=== PATIENT | female | born 1965 | race Caucasian/White ===

== ENCOUNTER 2016-08-11 13:24 | Emergency (ER) | payer OTHER ==
[~2016-08-11] VITALS: Ht 165.1 cm; Wt 120.2 kg
[2016-08-11 14:44] LABS: BASO % 1 % (0-3); EOS % 1 % (0-3); HEMATOCRIT 39.2 % (36.0-47.0); HEMOGLOBIN 13.8 g/dL (12.0-15.5); LYMPH # 2.5 x10^3/uL (1.0-4.8); LYMPH % 33 % (24-48); MEAN CORPUSCULAR HEMOGLOBIN 31 pg (25-35); MEAN CORPUSCULAR HGB CONC 35 g/dL (31-37); MEAN CORPUSCULAR VOLUME 89 fL (79-100); MONO % 7 % (0-9); NEUT % 58 % (31-73); PLATELET COUNT 256 x10^3/uL (140-400); RED CELL DISTRIBUTION WIDTH 13.1 % (11.5-14.5); WHITE BLOOD COUNT 7.5 x10^3/uL (4.0-11.0)
[2016-08-11 14:46] LABS: BILIRUBIN,URINE NEGATIVE (NEG); GLUCOSE,URINE NEGATIVE (NEG); NITRITE,URINE NEGATIVE (NEG); PROTEIN,URINE NEGATIVE (NEG-TRACE); UROBILINOGEN,URINE 0.2 mg/dL (0.2 mg/dL)
[2016-08-11 14:50] LABS: BACTERIA,URINE FEW /HPF (0-FEW); RBC,URINE 0 /HPF (0-2); SQUAMOUS EPITHELIAL CELL,UR FEW /LPF; WBC,URINE 0 /HPF (0-4)
[2016-08-11 14:55] LABS: CREATININE 0.7 mg/dL (0.6-1.0); GFR 88.2; POTASSIUM 3.9 mmol/L (3.5-5.1)
[2016-08-11 15:01] LABS: ALBUMIN 3.7 g/dL (3.4-5.0); CALCIUM 9.2 mg/dL (8.5-10.1); TOTAL BILIRUBIN 0.5 mg/dL (0.2-1.0); TOTAL PROTEIN 7.5 g/dL (6.4-8.2)
--- NOTE | 2016-08-11 16:33 | RAD ---
PROCEDURE Limited abdomen ultrasound study of the right upper quadrant HISTORY Right upper quadrant pain. FINDINGS The study is technically difficult due to large body habitus and overlying bowel gas. The midline structures including the pancreas and abdominal aorta are obscured by overlying bowel gas. The gallbladder is small in size. The patient ate 2.5 hours ago. No obvious gallstone or gallbladder wall thickening is seen otherwise. No pericholecystic free fluid is evident. The extrahepatic bile duct measures 3.4 millimeters in caliber which is normal. There is diffuse attenuation of sound throughout the liver consistent with fatty infiltration of the liver. This decreases the sensitivity of sonography to detect focal hepatic lesions. No focal hepatic mass is seen. The liver measures 15.4 centimeters in length which is normal. The length of the right kidney is 12.4 centimeters. No hydronephrosis or renal mass or perinephric fluid collection is seen on the right side. IMPRESSION Limited study. Fatty infiltration of the liver. Normal sonographic evaluation of the gallbladder. Electronically signed by: Hector Robledo MD (August 11, 2016 16:32:02)
--- NOTE | 2016-08-11 16:47 | PHYS DOC ---
Past Medical History Past Medical History: No Pertinent History Past Surgical History: , Tonsillectomy Alcohol Use: None Drug Use: None Adult General Chief Complaint Chief Complaint: FLANK PAIN HPI HPI Patient is a 50 year old female who presents with abdominal pain & flank pain. Patient reports 3 day history of RUQ & right flank pain which is sharp, worse at night, worsens with eating any food. She denies fevers/chills, nausea, vomiting, diarrhea, constipation, dysuria/hematuria. Previous symptoms several years ago, had gallbladder workup but no significant cause identified at that time. She denies significant PMHx, history of . Review of Systems Review of Systems Constitutional: Denies fever or chills Eyes: Denies change in visual acuity HENT: Denies nasal congestion or sore throat Respiratory: Denies cough or shortness of breath Cardiovascular: Denies chest pain or edema GI: Reports abdominal pain, denies nausea, vomiting, bloody stools or diarrhea : Denies dysuria or hematuria Musculoskeletal: Reports flank pain Integument: Denies rash or skin lesions Neurologic: Denies headache, focal weakness or sensory changes Current Medications Current Medications Current Medications Medications (Trade) Dose Ordered Sig/Lynn Start Time Stop Time Status Last Admin Dose Admin Info (Do NOT chart on this entry -- for MONITORING) 1 each PRN DAILY PRN 08/11/16 17:15 08/11/16 18:53 DC Iohexol (Omnipaque 300 Mg/ml) 75 ml 1X ONCE 08/11/16 17:00 08/11/16 17:05 DC Allergies Allergies Allergies Coded Allergies Type Severity Reaction Last Updated Verified No Known Drug Allergies 08/11/16 No Physical Exam Physical Exam Constitutional: obese, no acute distress, non-toxic appearance. HENT: Normocephalic, atraumatic, bilateral external ears normal, oropharynx moist, nose normal. Eyes: conjunctiva normal, no discharge. Neck: supple, no stridor. Cardiovascular: RRR, no murmurs, no edema. Lungs & Thorax: LCTAB, no wheezing, no respiratory distress. Abdomen: normal bowel sounds, soft, RUQ tenderness, otherwise nontender, no rebound/guarding, no masses or pulsatile masses, nondistended. Skin: Warm, dry, no erythema, no rash. Back: right CVA tenderness is present. Extremities: No tenderness, no edema. Neurologic: Alert and oriented X 3, no focal deficits noted. Psychologic: Affect normal, judgement normal, mood normal. Current Patient Data Vital Signs Vital Signs Date Time Temp Pulse Resp B/P (MAP) Pulse Ox O2 Delivery O2 Flow Rate FiO2 08/11/16 17:00 74 16 148/64 (92) 98 Room Air 08/11/16 13:34 97.8 97.8 Lab Values Laboratory Tests Test 08/11/16 14:30 08/11/16 14:35 Urine Collection Type Unknown Urine Color Yellow Urine Clarity Clear Urine pH 7.0 Urine Specific [place] 1.015 Urine Protein Negative mg/dL (NEG-TRACE) Urine Glucose (UA) Negative mg/dL (NEG) Urine Ketones (Stick) Negative mg/dL (NEG) Urine Blood Negative (NEG) Urine Nitrite Negative (NEG) Urine Bilirubin Negative (NEG) Urine Urobilinogen Dipstick 0.2 mg/dL (0.2 mg/dL) Urine Leukocyte Esterase Negative (NEG) Urine RBC 0 /HPF (0-2) Urine WBC 0 /HPF (0-4) Urine Squamous Epithelial Cells Few /LPF Urine Bacteria Few /HPF (0-FEW) Urine Mucus Mod /LPF White Blood Count 7.5 x10^3/uL (4.0-11.0) Red Blood Count 4.40 x10^6/uL (3.50-5.40) Hemoglobin 13.8 g/dL (12.0-15.5) Hematocrit 39.2 % (36.0-47.0) Mean Corpuscular Volume 89 fL (79-100) Mean Corpuscular Hemoglobin 31 pg (25-35) Mean Corpuscular Hemoglobin Concent 35 g/dL (31-37) Red Cell Distribution Width 13.1 % (11.5-14.5) Platelet Count 256 x10^3/uL (140-400) Neutrophils (%) (Auto) 58 % (31-73) Lymphocytes (%) (Auto) 33 % (24-48) Monocytes (%) (Auto) 7 % (0-9) Eosinophils (%) (Auto) 1 % (0-3) Basophils (%) (Auto) 1 % (0-3) Neutrophils # (Auto) 4.4 x10^3uL (1.8-7.7) Lymphocytes # (Auto) 2.5 x10^3/uL (1.0-4.8) Monocytes # (Auto) 0.5 x10^3/uL (0.0-1.1) Eosinophils # (Auto) 0.1 x10^3/uL (0.0-0.7) Basophils # (Auto) 0.0 x10^3/uL (0.0-0.2) Sodium Level 141 mmol/L (136-145) Potassium Level 3.9 mmol/L (3.5-5.1) Chloride Level 103 mmol/L (98-107) Carbon Dioxide Level 29 mmol/L (21-32) Anion Gap 9 (6-14) Blood Urea Nitrogen 17 mg/dL (7-20) Creatinine 0.7 mg/dL (0.6-1.0) Estimated GFR (Cockcroft-Gault) 88.2 BUN/Creatinine Ratio 24 (6-20) H Glucose Level 116 mg/dL (70-99) H Calcium Level 9.2 mg/dL (8.5-10.1) Total Bilirubin 0.5 mg/dL (0.2-1.0) Aspartate Amino Transferase (AST) 21 U/L (15-37) Alanine Aminotransferase (ALT) 25 U/L (14-59) Alkaline Phosphatase 67 U/L (46-116) Total Protein 7.5 g/dL (6.4-8.2) Albumin 3.7 g/dL (3.4-5.0) Albumin/Globulin Ratio 1.0 (1.0-1.7) Lipase 102 U/L (73-393) Laboratory Tests 08/11/16 14:35 Laboratory Tests 08/11/16 14:35 EKG EKG [] Radiology/Procedures Radiology/Procedures PROCEDURE: ABDOMEN LTD PROCEDURE Limited abdomen ultrasound study of the right upper quadrant HISTORY Right upper quadrant pain. FINDINGS The study is technically difficult due to large body habitus and overlying bowel gas. The midline structures including the pancreas and abdominal aorta are obscured by overlying bowel gas. The gallbladder is small in size. The patient ate 2.5 hours ago. No obvious gallstone or gallbladder wall thickening is seen otherwise. No pericholecystic free fluid is evident. The extrahepatic bile duct measures 3.4 millimeters in caliber which is normal. There is diffuse attenuation of sound throughout the liver consistent with fatty infiltration of the liver. This decreases the sensitivity of sonography to detect focal hepatic lesions. No focal hepatic mass is seen. The liver measures 15.4 centimeters in length which is normal. The length of the right kidney is 12.4 centimeters. No hydronephrosis or renal mass or perinephric fluid collection is seen on the right side. IMPRESSION Limited study. Fatty infiltration of the liver. Normal sonographic evaluation of the gallbladder. Electronically signed by: Amy Robledo MD (August 11, 2016 16:32:02) DICTATED and SIGNED BY: AMY ROBLEDO MD DATE: 08/11/16 1632 PROCEDURE: CT ABD PELV W/ IV CONTRST ONLY Examination: CT of the abdomen pelvis with IV contrast. HISTORY History of right upper quadrant pain for 3 days. COMPARISON None available. TECHNIQUE Axial CT images of the abdomen and pelvis were performed with IV contrast. Coronal and sagittal reformats were performed. Exposure: One or more of the following dose reduction technique were utilized for this examination: 1. Automated exposure control. 2.Adjustment of MA and /or KV according to patient size. 3. Use of iterative reconstruction technique. Findings: The visualized bibasilar lungs grossly appears unremarkable. No evidence of free air identified in the abdomen. There is mild decrease attenuation noted throughout the liver likely hepatic steatosis. The gallbladder is mildly distended. The visualized spleen, right adrenal grossly appears unremarkable. In the left adrenal gland, there is a 4.0 x 3.5 centimeter hypodense lesion identified measuring 13 Hounsfield units likely a lipid rich adrenal adenoma. The bilateral kidneys enhance symmetrically. Mild prominent appearing bilateral extrarenal pelvis. The visualized pancreas grossly appears unremarkable. The stomach is mildly distended. The small bowel is nondilated. The appendix is normal. Feces and gas noted in the colon. The urinary bladder is mildly distended. No evidence of lytic bony destructive lesion. Mild degenerative changes identified in the visualized thoracolumbar spine. Impression: 1. No acute intra-abdominal findings. 2. Hepatic steatosis. 3. 4 centimeter left adrenal lesion likely lipid rich adrenal adenoma followup nonemergent adrenal CT protocol can be considered. Electronically signed by: Jose Norris (August 11, 2016 18:37:29) DICTATED and SIGNED BY: JOSE NORRIS MD DATE: 08/11/16 4947 [] Course & Med Decision Making Course & Med Decision Making Pertinent Labs and Imaging studies reviewed. (See chart for details) The patient presents with abdominal pain. UA unremarkable, labs within normal limits. Obtained ultrasound which is negative for any gallbladder pathology. She had ongoing pain although continued to declined need for any pain medication here. Obtained CT of the abdomen and pelvis. There were no acute abnormalities identified. I did advise the patient of abnormal adrenal finding and need for follow-up. She was controlled with plan for discharge home. I encouraged her to follow up with her primary care physician in 2-3 days if symptoms not improving. Given prescription for [place] for severe pain. No drinking alcohol or driving while taking [place]. Return to the emergency department for high fever, severe pain, uncontrolled vomiting, any otherwise worsening condition. Discharged home in stable condition. [] Dragon Disclaimer Dragon Disclaimer This electronic medical record was generated, in whole or in part, using a voice recognition dictation system. Departure Departure Impression: Primary Impression: Abdominal pain Disposition: HOME, SELF-CARE Condition: STABLE Referrals: RODRIGUEZ GONZALEZ MD (PCP) Patient Instructions: Abdominal Pain, [id number] Additional Instructions: You were seen in the emergency department today for abdominal pain. We did not find a significant cause of the pain your experiencing. You can take [place] as needed for severe pain. No drinking alcohol or driving while taking this medication. Drink fluids to stay hydrated. There was a abnormal spot on your adrenal gland. Follow up with Dr. Gonzalez & there may be additional tests recommended. Follow up in the clinic if pain not improving in 2-3 days. Come back for high fever, severe pain, uncontrolled vomiting, any otherwise worsening condition. Scripts Hydrocodone/Apap 5-325 (NORCO 5-325 TABLET) 1 Each Tablet 1 TAB PO PRN Q6HRS Y for PAIN, #10 TAB 0 Refills Prov: PETAR CARLSON MD 08/11/16 PETAR CARLSON MD August 11, 2016 16:47
[2016-08-11 17:00] VITALS: BP 148/64
[2016-08-11] MEDS ORDERED: IOHEXOL 300 MG/ML 75 ML VIAL IV ONE (17:00)
[2016-08-11] MEDS ORDERED: CONTRAST GIVEN MC PRN (17:15)
--- NOTE | 2016-08-11 18:38 | RAD ---
Examination: CT of the abdomen pelvis with IV contrast. HISTORY History of right upper quadrant pain for 3 days. COMPARISON None available. TECHNIQUE Axial CT images of the abdomen and pelvis were performed with IV contrast. Coronal and sagittal reformats were performed. Exposure: One or more of the following dose reduction technique were utilized for this examination: 1. Automated exposure control. 2.Adjustment of MA and /or KV according to patient size. 3. Use of iterative reconstruction technique. Findings: The visualized bibasilar lungs grossly appears unremarkable. No evidence of free air identified in the abdomen. There is mild decrease attenuation noted throughout the liver likely hepatic steatosis. The gallbladder is mildly distended. The visualized spleen, right adrenal grossly appears unremarkable. In the left adrenal gland, there is a 4.0 x 3.5 centimeter hypodense lesion identified measuring 13 Hounsfield units likely a lipid rich adrenal adenoma. The bilateral kidneys enhance symmetrically. Mild prominent appearing bilateral extrarenal pelvis. The visualized pancreas grossly appears unremarkable. The stomach is mildly distended. The small bowel is nondilated. The appendix is normal. Feces and gas noted in the colon. The urinary bladder is mildly distended. No evidence of lytic bony destructive lesion. Mild degenerative changes identified in the visualized thoracolumbar spine. Impression: 1. No acute intra-abdominal findings. 2. Hepatic steatosis. 3. 4 centimeter left adrenal lesion likely lipid rich adrenal adenoma followup nonemergent adrenal CT protocol can be considered. Electronically signed by: Jose Norris (August 11, 2016 18:37:29)
[2016-08-11] MEDS ORDERED: HYDR-971 PO (18:44)
== END 2016-08-11 18:47 | disposition home or self-care (01) ==
LOC: ER 14:25
DX: R10.11 Right upper quadrant pain (principal); K76.0 Fatty (change of) liver, not elsewhere classified; Z98.890 Other specified postprocedural states
CPT/HCPCS: 36415; 74177; 76705; 80053; 81001; 83690; 85027; 99285-25

== ENCOUNTER 2019-01-31 18:09 | Emergency (ER) | payer OTHER ==
[~2019-01-31] VITALS: Ht 165.1 cm; Wt 120.2 kg
[~2019-01-31 18:09] MED LIST: HYDR-3164 PO
[2019-01-31 18:15] VITALS: BP 158/95
[2019-01-31] MEDS ORDERED: NAPROXEN 500 MG TABLET PO STA (18:40)
[2019-01-31] MEDS ORDERED: diazePAM 5 MG TABLET PO ONE (18:45)
[2019-01-31] MEDS ORDERED: HYDROcodone/APAP 5/325MG 1 TAB TABLET PO ONE (18:45)
[2019-01-31] MEDS ORDERED: predniSONE 10 MG TABLET PO ONE (18:45)
[2019-01-31] MEDS ORDERED: ONDANSETRON ODT 4 MG TAB.RAPDIS. ONE (19:25)
[2019-01-31] MEDS ORDERED: HYDR-3164 PO (19:39)
[2019-01-31] MEDS ORDERED: GABA600T7 PO (19:39)
[2019-01-31] MEDS ORDERED: METH4TAB2 PO (19:39)
[2019-01-31] MEDS ORDERED: ONDA4TAB12 PO (19:40)
--- NOTE | 2019-01-31 19:40 | PHYS DOC ---
Past Medical History Past Medical History: No Pertinent History (PREETI JACOB APRN) Past Surgical History: , Tonsillectomy (PREETI JACOB APRN) Alcohol Use: None Drug Use: None (PREETI JACOB APRN) Attending Signature I have participated in the care of this patient and I have reviewed and agree with all pertinent clinical information above including history, exam, and recommendations. (ROBBI NICHOLAS MD) Adult General Chief Complaint Chief Complaint: UPPER EXTREMITY PAIN HPI HPI Patient is a 53 year old female with no significant medical history who presents to the ED today complaining over 9 out of 10 sharp intermittent left upper extremity pain that has been going on for 4 weeks. Patient denies any known injury. She states the pain is worse on range of motion especially on the elbow. She states she intermittently feels the pain in her fingers, she states she was seen by the PCP for this pain and was told she has a pinched nerve and was put on Flexeril. Instructed to take ibuprofen, patient states symptoms have not improved. (PREETI JACOB APRN) Review of Systems Review of Systems Constitutional: Denies fever or chills [] Eyes: Denies change in visual acuity, redness, or eye pain [] HENT: Denies nasal congestion or sore throat [] Respiratory: Denies cough or shortness of breath [] Cardiovascular: No additional information not addressed in HPI [] GI: Denies abdominal pain, nausea, vomiting, bloody stools or diarrhea [] : Denies dysuria or hematuria [] Musculoskeletal: Reports left upper extremity pain Integument: Denies rash or skin lesions [] Neurologic: Denies headache, focal weakness or sensory changes [] All other systems were reviewed and found to be within normal limits, except as documented in this note. (PREETI JACOB APRN) Current Medications Current Medications Current Medications Medications (Trade) Dose Ordered Sig/Lynn Start Time Stop Time Status Last Admin Dose Admin Acetaminophen/ Hydrocodone Bitart (Lortab 5/325) 2 tab 1X ONCE 01/31/19 18:45 01/31/19 18:52 DC 01/31/19 18:57 2 TAB Diazepam (Valium) 5 mg 1X ONCE 01/31/19 18:45 01/31/19 18:52 DC 01/31/19 18:57 5 MG Naproxen (Naprosyn) 500 mg 1X STAT 01/31/19 18:40 01/31/19 18:52 DC 01/31/19 18:57 500 MG Ondansetron HCl (Zofran Odt) 4 mg 1X ONCE 01/31/19 19:45 01/31/19 19:46 DC Prednisone (Prednisone) 50 mg 1X ONCE 01/31/19 18:45 01/31/19 18:52 DC 01/31/19 18:57 50 MG (ROBBI NICHOLAS MD) Allergies Allergies Allergies Coded Allergies Type Severity Reaction Last Updated Verified No Known Drug Allergies 08/11/16 No (ROBBI NICHOLAS MD) Physical Exam Physical Exam Constitutional: Well developed, well nourished, no acute distress, non-toxic appearance. [] HENT: Normocephalic, atraumatic, bilateral external ears normal, oropharynx moist, no oral exudates, nose normal. [] Eyes: PERRLA, EOMI, conjunctiva normal, no discharge. [] Neck: Normal range of motion, no tenderness, supple, no stridor. [] Cardiovascular:Heart rate regular rhythm, no murmur [] Lungs & Thorax: Bilateral breath sounds clear to auscultation [] Abdomen: Bowel sounds normal, soft, no tenderness, no masses, no pulsatile masses. [] Skin: Warm, dry, no erythema, no rash. [] Back: No tenderness, no CVA tenderness. [] Extremities: No tenderness, no cyanosis, no clubbing, ROM intact, no edema. [] Neurologic: Alert and oriented X 3, normal motor function, normal sensory function, no focal deficits noted. [] Psychologic: Affect normal, judgement normal, mood normal. [] (PREETI JACOB APRN) Current Patient Data Vital Signs Vital Signs Date Time Temp Pulse Resp B/P (MAP) Pulse Ox O2 Delivery O2 Flow Rate FiO2 01/31/19 18:57 16 99 Room Air 01/31/19 18:15 98.6 80 158/95 (116) 98.6 (ROBBI NICHOLAS MD) EKG EKG [address] Nicholas sinus rhythm HR 84 no STEMI[] (PREETI JACOB APRN) Radiology/Procedures Radiology/Procedures [] (PREETI JACOB APRN) Course & Med Decision Making Course & Med Decision Making Pertinent Labs and Imaging studies reviewed. (See chart for details) This is a 53-year-old female patient presented to the ED today with left upper extremity pain for 4 weeks. Has been seen by the PCP and was diagnosed with a pinched nerve. She is currently on Flexeril and ibuprofen with no relief. EKG is negative. Patient was given prescription for gabapentin, hydrocodone and Medrol Dosepak, encouraged to continue doing ibuprofen and Flexeril. Provided pain clinic for follow-up as well as encouraged to see the PCP. (PREETI JACOB APRN) Dragon Disclaimer Dragon Disclaimer This electronic medical record was generated, in whole or in part, using a voice recognition dictation system. (PREETI JACOB APRN) Departure Departure Impression: Primary Impression: Radicular pain in left arm Disposition: 01 HOME, SELF-CARE Condition: STABLE Referrals: MARISABEL WILLIAMSON MD (PCP) follow up next week FATOU MEDEROS MD follow up next week Patient Instructions: Radicular Pain Additional Instructions: You have elevated in the emergency room for left upper extremity pain, we put you on medications, take them as prescribed. Try to follow-up with your primary care doctor next week, we also provided you with a pain clinic doctor, consider following up with them, they might be able to do some joint injections to help alleviate the pain. Scripts Ondansetron (ONDANSETRON ODT) 4 Mg Tab.rapdis 1 TAB PO PRN Q6-8HRS, #16 TAB Prov: PREETI JACOB APRN 01/31/19 Methylprednisolone (MEDROL) 4 Mg Tab.ds.pk 1 PKG PO UD, #1 PKG Prov: PREETI JACOB APRN 01/31/19 Gabapentin (GABAPENTIN) 600 Mg Tablet 600 MG PO TID for NEUROGENIC PAIN, #30 TAB Prov: PREETI JACOB APRN 01/31/19 Hydrocodone/Apap 5-325 (NORCO 5-325 TABLET) 1 Each Tablet 1 TAB PO Q6HRS, #20 TAB Prov: PREETI JACOB APRN 01/31/19 PREETI JACOB APRN Jan 31, 2019 19:40 ROBBI NICHOLAS MD Jan 31, 2019 23:18
[2019-01-31] MEDS ORDERED: ONDANSETRON ODT 4 MG TAB.RAPDIS. PO ONE (19:45)
--- NOTE | 2019-02-02 07:43 | EKG ---
[facility] [address] [place] [address] Test Date: 2019-01-31 Test Time: 18:55:52 Pat Name: MICHAEL ROSS Department: Room: Gender: F [employer]: : [id number] Requested By: PREETI JACOB Order Number: [id number] Reading MD: Measurements Intervals [place] Rate: 84 P: 35 VT: 162 QRS: 9 QRSD: 88 T: 49 QT: 360 QTc: 429 Interpretive Statements SINUS RHYTHM QRS(T) CONTOUR ABNORMALITY CONSIDER ANTEROSEPTAL MYOCARDIAL DAMAGE CONSIDER INFERIOR INFARCT POSSIBLY ABNORMAL ECG RI6.01 No previous ECG available for comparison
== END 2019-01-31 19:50 | disposition home or self-care (01) ==
LOC: ER 18:09
DX: M79.602 Pain in left arm (principal); M54.10 Radiculopathy, site unspecified
CPT/HCPCS: 93005; 99284; J7512

== ENCOUNTER 2020-11-26 02:19 | Emergency (ER) | payer OTHER ==
[~2020-11-26] VITALS: Ht 165.1 cm; Wt 119.0 kg
[~2020-11-26 02:19] MED LIST changes: +GABA600T7 PO; +METH4TAB2 PO; +ONDA4TAB12 PO
--- NOTE | 2020-11-26 02:33 | PHYS DOC ---
Past Medical History Past Medical History: No Pertinent History Past Surgical History: , Tonsillectomy Smoking Status: Never Smoker Alcohol Use: None Drug Use: None General Adult EDM: Chief Complaint: dyspnea, covid positive HPI: HPI: pt is COVID positive day #5, here for dypnea, cough, cant sleep, no Headache, no fevers or chills, no cardiac disease, no hx of PE, no abd pain Review of Systems: Review of Systems: Constitutional: + fever and chills Eyes: Denies change in visual acuity. [] HENT: Denies nasal congestion or sore throat. [] Respiratory: + cough + shortness of breath. [] Cardiovascular: Denies chest pain or edema. [] GI: Denies abdominal pain, nausea, vomiting, bloody stools or diarrhea. [] : Denies dysuria. [] Musculoskeletal: Denies back pain or joint pain. [] Integument: Denies rash. [] Neurologic: Denies headache, focal weakness or sensory changes. [] Endocrine: Denies polyuria or polydipsia. [] Lymphatic: Denies swollen glands. [] Psychiatric: Denies depression or anxiety. [] Heart Score: C/O Chest Pain: No Risk Factors: Risk Factors: DM, Current or recent (<one month) smoker, HTN, HLP, family history of CAD, obesity. Risk Scores: Score 0 - 3: 2.5% MACE over next 6 weeks - Discharge Home Score 4 - 6: 20.3% MACE over next 6 weeks - Admit for Clinical Observation Score 7 - 10: 72.7% MACE over next 6 weeks - Early Invasive Strategies Current Medications: Current Medications Medications (Trade) Dose Ordered Sig/Lynn Start Time Stop Time Status Last Admin Dose Admin Dexamethasone Sodium Phosphate (Decadron) 10 mg 1X ONCE 11/26/20 02:30 11/26/20 02:31 UNV Allergies: Allergies: Allergies Coded Allergies Type Severity Reaction Last Updated Verified No Known Drug Allergies 08/11/16 No Physical Exam: PE: Gen-well appearing, no acute distress Head: Normocephalic/Atraumatic ENT: atraumatic, PERRLA, EOMI, oropharynx clear Neck: supple, full ROM/strength, no JVD, no nuchal rigidity Lungs: no distress, speaks in full sentences, Clear to auscultation bilaterally CV: reg rate, rhythm, no murmus/rubs/gallops, peripheral pulses equal in all extremities Abdomen: soft/nontender, no guarding/rebound tenderness, no rigidity, non distended, normoactive bowel sounds Musculoskeletal: full ROM/strength in all extremities, atraumatic, no swelling Back: full range of motion/strength Skin: intact, no rashes Lymph: no gross MISAEL Neuro: alert and oriented x 4, CN 2-12 grossly intact, Motor strength is 5/5 in all extremities, no focal sensory deficits, no focal ataxia, ambulatory with steady gait Psych: normal mood/affect EKG: EKG: [] Twelve-lead EKG was performed at 3:03 AM: Normal sinus rhythm, rate is 91, nonischemic appearing EKG with normal axis and intervals Radiology/Procedures: Radiology/Procedures: [] Course & Med Decision Making: Course & Med Decision Making Pertinent Labs and Imaging studies reviewed. (See chart for details) [] Patient presents to the emergency department day #5 of being diagnosed with COVID-19, patient has 94% oxygenation on room air, no increased work of breathing, we are seeing an increase of pulmonary emboli bacterial pneumonia and Covid patients I will do a D-dimer level, labs, x-ray, unlikely ACS, dissection or pneumothorax, will give her some Decadron in the meantime Reevaluation at 4 AM: The patient is feeling better, room air O2 sat is up to 95% and her work-up was otherwise negative, x-ray consistent with viral pneumonia type pattern, I believe she stable for discharge at this time for close outpatient primary care follow-up Patient was seen in the ED for COVID-19 infection and she clinically improved in the ER, there is no apparent evidence of any emergency medical pathology at this time, patient was advised follow-up with their primary care provider /physician in the next 24-48 hours and to return to the ED before then if any new or worsening / concerning symptoms had developed. All questions and concerns were addressed at time of disposition Trent Disclaimer: Trent Disclaimer: This electronic medical record was generated, in whole or in part, using a voice recognition dictation system. Departure Departure Impression: Primary Impression: Pneumonia due to COVID-19 virus Disposition: HOME / SELF CARE / HOMELESS Condition: IMPROVED Referrals: MARISABEL WILLIAMSON MD (PCP) 2 days Patient Instructions: Cough, Adult Additional Instructions: The good news is your blood work here is okay, x-ray is okay, I am going to start you on a steroid pack with some breathing medicines, please follow-up with your primary care doctor in the next 48 hours, return to the ER before then if any new or worsening/concerning symptoms develop Scripts Alprazolam (XANAX) 0.25 Mg Tablet 0.25 MG PO PRN Q6HRS PRN for ANXIETY, #6 TAB 0 Refills Prov: JUDIE WEBB MD 11/26/20 Methylprednisolone (MEDROL) 4 Mg Tab.ds.pk 1 PKG PO UD for inflammation, #1 PKG Prov: JUDIE WEBB MD 11/26/20 Albuterol Sulfate (VENTOLIN HFA INHALER) 18 Gm Hfa.aer.ad 2 PUFF INH QID PRN for WHEEZING for 7 Days, #1 INHALER 0 Refills Prov: JUDIE WEBB MD 11/26/20 JUDIE WEBB MD Nov 26, 2020 02:33
[2020-11-26] MEDS ORDERED: DEXAMETHASONE SOD PHOS 4 MG/ML VIAL IVP ONE (03:00)
--- NOTE | 2020-11-26 03:11 | EKG ---
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
[2020-11-26 03:14] LABS: BASO % 1 % (0-3); EOS % 0 % (0-3); HEMATOCRIT 39.2 % (36.0-47.0); HEMOGLOBIN 13.9 g/dL (12.0-15.5); LYMPH # 1.2 x10^3/uL (1.0-4.8); LYMPH % 22 % (24-48); MEAN CORPUSCULAR HEMOGLOBIN 31 pg (25-35); MEAN CORPUSCULAR HGB CONC 35 g/dL (31-37); MEAN CORPUSCULAR VOLUME 89 fL (79-100); MONO # 0.4 x10^3/uL (0.0-1.1); MONO % 8 % (0-9); NEUT # 4.1 x10^3/uL (1.8-7.7); NEUT % 70 % (31-73); PLATELET COUNT 154 x10^3/uL (140-400); RED BLOOD COUNT 4.43 x10^6/uL (3.50-5.40); RED CELL DISTRIBUTION WIDTH 13.3 % (11.5-14.5); WHITE BLOOD COUNT 5.8 x10^3/uL (4.0-11.0)
--- NOTE | 2020-11-26 03:32 | RAD ---
XR CHEST 1V Clinical Indication: Reason: cough / Comparison: None. Findings: The cardiomediastinal silhouette is normal. There are bilateral patchy airspace opacities. There is n o pneumothorax. No pleural effusion is appreciated. No acute bone abnormality. IMPRESSION: Bilateral patchy airspace opacities. Considerations include pneumonia including atypical/viral pneumo nitis, asymmetric pulmonary edema, or atelectasis. Electronically signed by: Vlad Mercer MD (11/26/2020 3:30 AM) [facility]
[2020-11-26 03:45] LABS: CALCIUM 8.3 mg/dL (8.5-10.1); CREATININE 0.6 mg/dL (0.6-1.0); GFR 103.4; POTASSIUM 3.7 mmol/L (3.5-5.1)
[2020-11-26 03:51] LABS: ALBUMIN 3.2 g/dL (3.4-5.0); TOTAL BILIRUBIN 0.4 mg/dL (0.2-1.0); TOTAL PROTEIN 6.4 g/dL (6.4-8.2)
[2020-11-26] MEDS ORDERED: METH4TAB2 PO (04:02)
[2020-11-26] MEDS ORDERED: ALPR0.25 PO (04:02)
[2020-11-26] MEDS ORDERED: VENTOLIN HFA18 GM INH (04:02)
[2020-11-26 05:24] VITALS: BP 129/73
== END 2020-11-26 05:45 | disposition home or self-care (01) ==
LOC: ER 02:19
DX: U07.1 COVID-19 (principal); J12.82 Pneumonia due to coronavirus disease 2019
CPT/HCPCS: 36415; 71045; 80053; 83880; 84484; 85025; 85379; 93005; 96374; 99285; J1100

== ENCOUNTER 2020-11-27 11:51 | Inpatient (IN) | payer OTHER ==
[~2020-11-27] VITALS: Ht 165.1 cm; Wt 118.6 kg
[~2020-11-27 11:51] MED LIST changes: +ALPR0.25 PO; +VENTOLIN HFA18 GM INH
[2020-11-27] MEDS ORDERED: IV NORMAL SALINE 1000ML BAG 1,000 ML IV SCH (12:30)
[2020-11-27] MEDS ORDERED: DEXAMETHASONE SOD PHOS 20 MG/5 ML VIAL. IV ONE (12:30)
--- NOTE | 2020-11-27 12:42 | PHYS DOC ---
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 She was here 2 days ago and was told that she had Covid pneumonia and was given a Medrol Dosepak, anxiety medication, ProAir inhaler. She states she has not taken the anxiety medication because she is scared. She states she has not been sleeping and she did buy it O2 oxygenation monitor for her finger but she is too confused and tired to figure out how to use it. She states she is does not understand the numbers. States her is currently at [facility] with Covid pneumonia but is doing well. She states she is home alone and she is very scared. She is not vaccinated. Her symptoms consist of cough, shortness of breath and decreased appetite. She states yesterday was first day she is able to drink water and eat some food. She denies chest pain, dizziness, headache, nausea, vomiting, diarrhea, vision change, numbness or tingling, focal weakness, abdominal pain. (LIBBY WASLH TEA BAG MACHINE TENDER) Review of Systems: Review of Systems: Constitutional: Denies fever or chills. [] Eyes: Denies change in visual acuity. [] HENT: Denies nasal congestion or sore throat. [] Respiratory: + cough or +shortness of breath. [] Cardiovascular: Denies chest pain or edema. [] GI: Denies abdominal pain, nausea, vomiting, bloody stools or diarrhea. + Decreased appetite [] : Denies dysuria. [] Musculoskeletal: Denies back pain or joint pain. [] Integument: Denies rash. [] Neurologic: Denies headache, focal weakness or sensory changes. [] Endocrine: Denies polyuria or polydipsia. [] Lymphatic: Denies swollen glands. [] Psychiatric: Denies depression or anxiety. [] (LIBBY WALSH TEA BAG MACHINE TENDER) Heart Score: C/O Chest Pain: No Risk Factors: Risk Factors: DM, Current or recent (<one month) smoker, HTN, HLP, family history of CAD, obesity. Risk Scores: Score 0 - 3: 2.5% MACE over next 6 weeks - Discharge Home Score 4 - 6: 20.3% MACE over next 6 weeks - Admit for Clinical Observation Score 7 - 10: 72.7% MACE over next 6 weeks - Early Invasive Strategies (LIBBY WALSH APRN) Current Medications: Current Medications Medications (Trade) Dose Ordered Sig/Lynn Start Time Stop Time Status Last Admin Dose Admin Dexamethasone Sodium Phosphate (Decadron) 10 mg 1X ONCE 11/27/20 12:30 11/27/20 12:22 DC Sodium Chloride 1,000 ml @ 1,000 mls/hr Q1H 11/27/20 12:30 11/27/20 13:29 UNV (LIBBY WALSH APRN) Allergies: Allergies: Allergies Coded Allergies Type Severity Reaction Last Updated Verified No Known Drug Allergies 08/11/16 No (LIBBY WALSH APRN) Physical Exam: PE: Constitutional: Well developed, well nourished, no acute distress, non-toxic appearance. [] HENT: Normocephalic, atraumatic, bilateral external ears normal, oropharynx moist, no oral exudates, nose normal. [] Eyes: PERRLA, EOMI, conjunctiva normal, no discharge. [] Neck: Normal range of motion, no tenderness, supple, no stridor. [] Cardiovascular:Heart rate regular rhythm, no murmur [] Lungs & Thorax: Bilateral upper breath sounds clear lower diminished to auscultation [] Abdomen: Bowel sounds normal, soft, no tenderness, no masses, no pulsatile masses. [] Skin: Warm, dry, no erythema, no rash. [] Back: No tenderness, no CVA tenderness. [] Extremities: No tenderness, no cyanosis, no clubbing, ROM intact, no edema. [] Neurologic: Alert and oriented X 3, normal motor function, normal sensory function, no focal deficits noted. [] Psychologic: Affect normal, judgement normal, mood normal. Anxious [] (LIBBY WALSH APRN) EKG: EK and read by Dr. Kwon is a sinus rhythm and no STEMI [] (LIBBY WALSH APRN) Radiology/Procedures: Radiology/Procedures: [] Impression: [facility] [address] [place] [address] IMAGING REPORT Signed PATIENT: MICHAEL ROSS ACCOUNT: [id number] : 1965 LOCATION: ER AGE: 55 SEX: F EXAM STATUS: REG ER ORD. PHYSICIAN: LIBBY WALSH APRN REASON: SOA, COVID+ PROCEDURE: PORTABLE CHEST 1V EXAMINATION: Chest radiograph. VIEWS: Single view COMPARISON: 11/26/2020 INDICATION:55 years, Female, Covid positive. Shortness of breath. FINDINGS: Normal cardiomediastinal silhouette. Essentially unchanged bilateral patchy airs pace opacities. No pleural effusion or pneumothorax. No acute osseous process. IMPRESSION: Essentially unchanged bilateral patchy airspace opacities, consistent with Covid 19 pneumonia given patient's history Electronically signed by: Brandi Pedroza MD (11/27/2020 1:00 PM) [facility] DICTATED and SIGNED BY: BRANDI PEDROZA MD DATE: 11/27/20 [id number] (LIBBY WALSH APRN) Course & Med Decision Making: Course & Med Decision Making Pertinent Labs and Imaging studies reviewed. (See chart for details) COVID-19 CRITERIA: The patient was evaluated during the global COVID-19 pandemic, and that diagnosis was suspected/considered upon their initial presentation. Their evaluation, treatment and testing was consistent with current guidelines for patients who present with complaints or symptoms that may be related to COVID-19. See HPI. Alert and oriented x4. Ambulatory steady gait. Speaks in full clear sentences. Skin pink warm and dry. Lungs are clear in upper lobes and diminished in lower lobes. Chest x-ray shows Covid pneumonia but it has not worsened since 3 days ago. 90 to 91% on room air. RN did show the patient how to use her oxygenation probe for her finger and what the numbers meant. Patient has failed outpatient therapy but is not currently needing oxygen. Placed on 2 L of oxygen for comfort. She is admitted to hospitalist. [] (LIBBY WALSH APRN) Dragclaire Disclaimer: Dragon Disclaimer: This electronic medical record was generated, in whole or in part, using a voice recognition dictation system. (LIBBY WALSH APRN) COVID-19 Patient Risks: Age 65 or older: No Sign of co-morbidity: Yes Exp to person + for COVID: Yes Exp to PUI: No Travel from affected area: No Lower respiratory symptoms: Yes Fever: No Other: Yes (LACK OF APPETITE) (LIBBY WALSH APRN) PPE Use: Full PPE with N95 mask or PAPR: Yes (LIBBY WALSH APRN) Departure Departure Impression: Primary Impression: Pneumonia due to COVID-19 virus Disposition: ADMITTED INPATIENT Admitting Physician: NIELS (LIBBY WALSH APRN) Condition: STABLE Referrals: MARISABEL WILLIAMSON MD (PCP) Attending Signature Attending Signature I have reviewed the PA/FABRIC CUTTER's note and plan of care. I was available for consultation as needed during the patient's visit in the emergency department. I agree with the clinical impression, plan, and disposition. (MEHREEN KWON DO) LIBBY WALSH APRN Nov 27, 2020 12:42 MEHREEN KWON DO Nov 27, 2020 19:05
[2020-11-27] MEDS ORDERED: methylPREDNISolone SOD SUCC PF 125 MG/2 ML VIAL. IV ONE (12:45)
--- NOTE | 2020-11-27 13:02 | RAD ---
EXAMINATION: Chest radiograph. VIEWS: Single view COMPARISON: 11/26/2020 INDICATION:55 years, Female, Covid positive. Shortness of breath. FINDINGS: Normal cardiomediastinal silhouette. Essentially unchanged bilateral patchy airspace opacities. No pl eural effusion or pneumothorax. No acute osseous process. IMPRESSION: Essentially unchanged bilateral patchy airspace opacities, consistent with Covid 19 pneumonia given p atient's history Electronically signed by: Jon Pedroza MD (11/27/2020 1:00 PM) [facility]
[2020-11-27 13:06] LABS: BASO % 0 % (0-3); EOS % 0 % (0-3); HEMATOCRIT 38.6 % (36.0-47.0); HEMOGLOBIN 13.9 g/dL (12.0-15.5); LYMPH % 10 % (24-48); MEAN CORPUSCULAR HEMOGLOBIN 32 pg (25-35); MEAN CORPUSCULAR HGB CONC 36 g/dL (31-37); MEAN CORPUSCULAR VOLUME 89 fL (79-100); MONO # 0.8 x10^3/uL (0.0-1.1); MONO % 8 % (0-9); NEUT # 8.4 x10^3/uL (1.8-7.7); NEUT % 82 % (31-73); PLATELET COUNT 198 x10^3/uL (140-400); RED BLOOD COUNT 4.35 x10^6/uL (3.50-5.40); RED CELL DISTRIBUTION WIDTH 13.4 % (11.5-14.5); WHITE BLOOD COUNT 10.3 x10^3/uL (4.0-11.0)
[2020-11-27 13:14] LABS: CALCIUM 8.9 mg/dL (8.5-10.1); CREATININE 0.8 mg/dL (0.6-1.0); GFR 74.2; POTASSIUM 3.7 mmol/L (3.5-5.1)
[2020-11-27 13:20] LABS: ALBUMIN 3.1 g/dL (3.4-5.0); ALBUMIN/GLOBULIN RATIO 0.8 (1.0-1.7); TOTAL BILIRUBIN 0.5 mg/dL (0.2-1.0); TOTAL PROTEIN 7.2 g/dL (6.4-8.2)
--- NOTE | 2020-11-27 13:59 | NUR ---
Patient refused ABG. MANAGING CONSULTANT notified. Will continue to monitor.
[2020-11-27] MEDS ORDERED: AZITHRMYCN 500MG IVPB FOR OMNI 250 ML IV ONE (14:00)
--- NOTE | 2020-11-27 14:05 | EKG ---
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
[2020-11-27 14:28] LABS: BASE EXCESS COOX 3 mmol/L (-3-3); HCO3 COOX 27 mmol/L (21-28); METHEMOGLOBIN 0.3 % (0.0-1.9); OXYHEMOGLOBIN 90.1 %; PCO2 COOX 40 mmHg (35-46); PO2 COOX 59 mmHg (75-108); SAT O2 COOX 91 % (92-99)
[2020-11-27] MEDS ORDERED: ACETAMINOPHEN 325 MG TABLET. PO PRN (16:00)
[2020-11-27] MEDS ORDERED: PIP/TAZO PER PHARMACY MC PRN (18:45)
[2020-11-27] MEDS: PIPERACILLIN/TAZOBACTAM 3.375 GM in IV NORMAL SALINE 50ML 50 ML IV SCH (19:41)
[2020-11-27 19:52] LABS: BILIRUBIN,URINE NEGATIVE (NEG); CLARITY,URINE CLEAR; COLOR,URINE YELLOW; NITRITE,URINE NEGATIVE (NEG); PH,URINE 6.5 (<5.0-8.0); PROTEIN,URINE NEGATIVE (NEG-TRACE)
[2020-11-27 19:58] LABS: BACTERIA,URINE FEW /HPF (0-FEW); RBC,URINE 0 /HPF (0-2); WBC,URINE RARE /HPF (0-4)
[2020-11-27] MEDS: DOXYCYCLINE HYCLATE 100 MG in IV DEXTROSE 5% 100ML 100 ML IV SCH (20:18)
[2020-11-28] MEDS: methylPREDNISolone SOD SUCC PF 40 MG/ML VIAL. IV SCH ×3 (00:44→20:22)
[2020-11-28] MEDS: guaiFENesin/CODEINE 100mg/10mg 5 ML LIQUID PO PRN ×3 (02:56→20:34)
[2020-11-28 03:55] VITALS: BP 146/92
--- NOTE | 2020-11-28 06:13 | HP ---
ADMIT DATE: 11/27/2020 CHIEF COMPLAINT: Shortness of breath, cough, weakness, recent COVID-19 positive, recent pneumonia. HISTORY OF PRESENT ILLNESS: The patient is a pleasant 55-year-old female who has been suffering from COVID-19 for the past 9 days. She has been treated as an outpatient with some albuterol and a Medrol Dosepak. She states her symptoms have just worsened. She cannot breathe well. She is short of breath. She is weak, a little confused at times. Her is currently being treated at [facility] on the plasma with COVID-19 pneumonia as well. I discussed the case with ER physician. We admitted the patient, give her COVID protocol. PAST MEDICAL HISTORY: Recent COVID-19 for the past 9 days. , tonsillectomy. ALLERGIES: None. FAMILY HISTORY: Hypertension. SOCIAL HISTORY: She is a student. She does not drink, smoke or take drugs. She is . Her has COVID-19 at [facility]. MEDICATIONS: Reviewed, please refer to the medication. REVIEW OF SYSTEMS: GENERAL: She complains of weakness. SKIN: No bruising, hair changes or rashes. EYES: No blurred, double or loss of vision. NOSE AND THROAT: No history of nosebleeds, hoarseness or sore throat. HEART: No history of palpitations, chest pain or shortness of breath on exertion. PULMONARY: She complains of shortness of breath. GASTROINTESTINAL: Denies changes in appetite, nausea, vomiting, diarrhea or constipation. GENITOURINARY: No history of frequency, urgency, hesitancy or nocturia. NEUROLOGIC: She complains of weakness. PSYCHIATRIC: She complains of feeling a little down. ENDOCRINE: No history of heat or cold intolerance, polyuria or polydipsia. EXTREMITIES: Denies muscle weakness, joint pain, pain on walking or stiffness. LABORATORY AND DIAGNOSTIC DATA: White count is 10. Electrolytes are normal other than sodium 134. D-dimer is 0.3. ABG, pH 7.46, pCO2 of 40, pO2 of 59, bicarbonate 27 with saturation 91% that was on room air. Chest x-ray shows COVID-19 pneumonia. ASSESSMENT AND PLAN: COVID-19, respiratory failure. The patient has been admitted. We will give her IV Solu-Medrol, IV antibiotics, vitamins, minerals, beta agonist, oxygen, codeine cough syrup and aspirin. We will consider remdesivir if she becomes hypoxic, but at this point she does not qualify. Home medications, deep vein thrombosis prophylaxis. CODE STATUS: Full code. CRUZ/CAYDEN/JEAN MARIE DR: Karen TID: [id number]
[2020-11-28] MEDS: PIPERACILLIN/TAZOBACTAM 3.375 GM in IV NORMAL SALINE 50ML 50 ML IV SCH ×4 (06:27→23:37)
[2020-11-28 07:00] VITALS: BP 149/86
[2020-11-28] MEDS: MULTIVITAMIN with MINERAL TABLET. PO SCH (08:50)
[2020-11-28] MEDS: ASPIRIN CHEWABLE 81 MG TABLET. PO SCH (08:50)
[2020-11-28] MEDS: DOXYCYCLINE HYCLATE 100 MG in IV DEXTROSE 5% 100ML 100 ML IV SCH ×2 (08:51→20:21)
--- NOTE | 2020-11-28 10:37 | PDOC ---
PROGRESS NOTES Date of Service: DATE: 11/28/20 TIME: 10:36 Chief Complaint Chief Complaint ASSESSMENT AND PLAN: COVID-19, respiratory failure. spo2 90 % RA LAST NIGHT admitted. IV Solu-Medrol, IV antibiotics, vitamins, minerals, beta agonist q 4 hrs, oxygen support , codeine cough syrup and aspirin. consider remdesivir if she becomes hypoxic, but at this point she does not qualify. Home medications, deep vein thrombosis prophylaxis 6 MIN WALK History of Present Illness History of Present Illness pleasant 55-year-old female who has been suffering from COVID-19 for the past 9 days. She has been treated as an outpatient with some albuterol and a Medrol Dosepak. She states her symptoms have just worsened. She cannot breathe well. She is short of breath. She is weak, a little confused at times. Her is currently being treated at [facility] on the plasma with COVID-19 pneumonia as well. I discussed the case with ER physician. We admitted the patient, give her COVID protocol. PAST MEDICAL HISTORY: Recent COVID-19 for the past 9 days. , tonsillectomy. ALLERGIES: None. FAMILY HISTORY: Hypertension. SOCIAL HISTORY: She is a student. She does not drink, smoke or take drugs. She is . Her has COVID-19 at [facility]. MEDICATIONS: Reviewed, please refer to the medication. REVIEW OF SYSTEMS: GENERAL: She complains of weakness. SKIN: No bruising, hair changes or rashes. EYES: No blurred, double or loss of vision. NOSE AND THROAT: No history of nosebleeds, hoarseness or sore throat. HEART: No history of palpitations, chest pain or shortness of breath on exertion. PULMONARY: She complains of shortness of breath. GASTROINTESTINAL: Denies changes in appetite, nausea, vomiting, diarrhea or constipation. GENITOURINARY: No history of frequency, urgency, hesitancy or nocturia. NEUROLOGIC: She complains of weakness. PSYCHIATRIC: She complains of feeling a little down. ENDOCRINE: No history of heat or cold intolerance, polyuria or polydipsia. EXTREMITIES: Denies muscle weakness, joint pain, pain on walking or stiffness. 8-30 REMAINS soa WITH MILD ACTIVITY, DESIRES TO STAY ANOTHER DAY DUE TO DYSPNEA D/W RN CONT IV DOXY 6 MIN WALK TODAY COVID-19, respiratory failure. spo2 90 % RA LAST NIGHT admitted. IV Solu-Medrol, IV antibiotics, vitamins, minerals, beta agonist q 4 hrs, oxygen support , codeine cough syrup and aspirin. Vitals Vitals Vital Signs Date Time Temp Pulse Resp B/P (MAP) Pulse Ox O2 Delivery O2 Flow Rate FiO2 11/28/20 08:30 Room Air 11/28/20 07:00 98.6 80 20 149/86 (107) 92 98.6 Physical Exam Physical Exam Constitutional: Well developed, well nourished, no acute distress, non-toxic appearance. [] HENT: Normocephalic, atraumatic, bilateral external ears normal, oropharynx moist, no oral exudates, nose normal. [] Eyes: PERRLA, EOMI, conjunctiva normal, no discharge. [] Neck: Normal range of motion, no tenderness, supple, no stridor. [] Cardiovascular:Heart rate regular rhythm, no murmur [] Lungs & Thorax: Bilateral upper breath sounds clear lower diminished to auscultation [] Abdomen: Bowel sounds normal, soft, no tenderness, no masses, no pulsatile masses. [] Skin: Warm, dry, no erythema, no rash. [] Back: No tenderness, no CVA tenderness. [] Extremities: No tenderness, no cyanosis, no clubbing, ROM intact, no edema. [] Neurologic: Alert and oriented X 3, normal motor function, normal sensory function, no focal deficits noted. [] Psychologic: Affect normal, judgement normal, mood normal. Anxious [] Abdomen: Normal bowel sounds, Soft Extremities: No edema Labs LABS PATIENT: MICHAEL ROSS ACCOUNT: [id number] : 1965 LOCATION: ER AGE: 55 SEX: F EXAM STATUS: REG ER ORD. PHYSICIAN: LIBBY WALSH APRN REASON: SOA, COVID+ PROCEDURE: PORTABLE CHEST 1V EXAMINATION: Chest radiograph. VIEWS: Single view COMPARISON: 11/26/2020 INDICATION:55 years, Female, Covid positive. Shortness of breath. FINDINGS: Normal cardiomediastinal silhouette. Essentially unchanged bilateral patchy airspace opacities. No pleural effusion or pneumothorax. No acute osseous process. IMPRESSION: Essentially unchanged bilateral patchy airspace opacities, consistent with Covid 19 pneumonia given patient's history Electronically signed by: Brandi Pedroza MD (11/27/2020 1:00 PM) [facility] DICTATED and SIGNED BY: BRANDI PEDROZA MD DATE: 11/27/20 [id number] Laboratory Tests Test 11/27/20 12:56 11/27/20 13:33 11/27/20 14:28 11/27/20 19:46 White Blood Count 10.3 x10^3/uL (4.0-11.0) Red Blood Count 4.35 x10^6/uL (3.50-5.40) Hemoglobin 13.9 g/dL (12.0-15.5) Hematocrit 38.6 % (36.0-47.0) Mean Corpuscular Volume 89 fL (79-100) Mean Corpuscular Hemoglobin 32 pg (25-35) Mean Corpuscular Hemoglobin Concent 36 g/dL (31-37) Red Cell Distribution Width 13.4 % (11.5-14.5) Platelet Count 198 x10^3/uL (140-400) Neutrophils (%) (Auto) 82 % (31-73) Lymphocytes (%) (Auto) 10 % (24-48) Monocytes (%) (Auto) 8 % (0-9) Eosinophils (%) (Auto) 0 % (0-3) Basophils (%) (Auto) 0 % (0-3) Neutrophils # (Auto) 8.4 x10^3/uL (1.8-7.7) Lymphocytes # (Auto) 1.0 x10^3/uL (1.0-4.8) Monocytes # (Auto) 0.8 x10^3/uL (0.0-1.1) Eosinophils # (Auto) 0.0 x10^3/uL (0.0-0.7) Basophils # (Auto) 0.0 x10^3/uL (0.0-0.2) Sodium Level 134 mmol/L (136-145) Potassium Level 3.7 mmol/L (3.5-5.1) Chloride Level 98 mmol/L (98-107) Carbon Dioxide Level 28 mmol/L (21-32) Anion Gap 8 (6-14) Blood Urea Nitrogen 13 mg/dL (7-20) Creatinine 0.8 mg/dL (0.6-1.0) Estimated GFR (Cockcroft-Gault) 74.2 BUN/Creatinine Ratio 16 (6-20) Glucose Level 131 mg/dL (70-99) Calcium Level 8.9 mg/dL (8.5-10.1) Total Bilirubin 0.5 mg/dL (0.2-1.0) Aspartate Amino Transf (AST/SGOT) 49 U/L (15-37) Alanine Aminotransferase (ALT/SGPT) 55 U/L (14-59) Alkaline Phosphatase 59 U/L (46-116) Troponin I Quantitative < 0.017 ng/mL (0.000-0.055) OU-Zda-I-Type Natriuretic Peptide 39 pg/mL (0-124) Total Protein 7.2 g/dL (6.4-8.2) Albumin 3.1 g/dL (3.4-5.0) Albumin/Globulin Ratio 0.8 (1.0-1.7) D-Dimer (Mary Kay) 0.31 ug/mlFEU (0.00-0.50) O2 Saturation 91 % (92-99) Arterial Blood pH 7.46 (7.35-7.45) Arterial Blood pCO2 at Patient Temp 40 mmHg (35-46) Arterial Blood pO2 at Patient Temp 59 mmHg (75-108) Arterial Blood HCO3 27 mmol/L (21-28) Arterial Blood Base Excess 3 mmol/L (-3-3) Oxyhemoglobin 90.1 % Methemoglobin 0.3 % (0.0-1.9) Carbon Monoxide, Quantitative 0.3 % (0.0-1.9) FiO2 21 Urine Collection Type Unknown Urine Color Yellow Urine Clarity Clear Urine pH 6.5 (<5.0-8.0) Urine Specific [place] 1.010 (1.000-1.030) Urine Protein Negative mg/dL (NEG-TRACE) Urine Glucose (UA) Negative mg/dL (NEG) Urine Ketones (Stick) Negative mg/dL (NEG) Urine Blood Negative (NEG) Urine Nitrite Negative (NEG) Urine Bilirubin Negative (NEG) Urine Urobilinogen Dipstick 1.0 mg/dL (0.2 mg/dL) Urine Leukocyte Esterase Negative (NEG) Urine RBC 0 /HPF (0-2) Urine WBC Rare /HPF (0-4) Urine Squamous Epithelial Cells Few /LPF Urine Bacteria Few /HPF (0-FEW) Assessment and Plan Assessmemt and Plan Problems Medical Problems: (1) Pneumonia due to COVID-19 virus Status: Acute Comment Review of Relevant I have reviewed the following items jey (where applicable) has been applied. Labs Laboratory Tests Test 11/27/20 12:56 11/27/20 13:33 11/27/20 14:28 11/27/20 19:46 White Blood Count 10.3 x10^3/uL (4.0-11.0) Red Blood Count 4.35 x10^6/uL (3.50-5.40) Hemoglobin 13.9 g/dL (12.0-15.5) Hematocrit 38.6 % (36.0-47.0) Mean Corpuscular Volume 89 fL (79-100) Mean Corpuscular Hemoglobin 32 pg (25-35) Mean Corpuscular Hemoglobin Concent 36 g/dL (31-37) Red Cell Distribution Width 13.4 % (11.5-14.5) Platelet Count 198 x10^3/uL (140-400) Neutrophils (%) (Auto) 82 % (31-73) Lymphocytes (%) (Auto) 10 % (24-48) Monocytes (%) (Auto) 8 % (0-9) Eosinophils (%) (Auto) 0 % (0-3) Basophils (%) (Auto) 0 % (0-3) Neutrophils # (Auto) 8.4 x10^3/uL (1.8-7.7) Lymphocytes # (Auto) 1.0 x10^3/uL (1.0-4.8) Monocytes # (Auto) 0.8 x10^3/uL (0.0-1.1) Eosinophils # (Auto) 0.0 x10^3/uL (0.0-0.7) Basophils # (Auto) 0.0 x10^3/uL (0.0-0.2) Sodium Level 134 mmol/L (136-145) Potassium Level 3.7 mmol/L (3.5-5.1) Chloride Level 98 mmol/L (98-107) Carbon Dioxide Level 28 mmol/L (21-32) Anion Gap 8 (6-14) Blood Urea Nitrogen 13 mg/dL (7-20) Creatinine 0.8 mg/dL (0.6-1.0) Estimated GFR (Cockcroft-Gault) 74.2 BUN/Creatinine Ratio 16 (6-20) Glucose Level 131 mg/dL (70-99) Calcium Level 8.9 mg/dL (8.5-10.1) Total Bilirubin 0.5 mg/dL (0.2-1.0) Aspartate Amino Transf (AST/SGOT) 49 U/L (15-37) Alanine Aminotransferase (ALT/SGPT) 55 U/L (14-59) Alkaline Phosphatase 59 U/L (46-116) Troponin I Quantitative < 0.017 ng/mL (0.000-0.055) UP-[id number]-Type Natriuretic Peptide 39 pg/mL (0-124) Total Protein 7.2 g/dL (6.4-8.2) Albumin 3.1 g/dL (3.4-5.0) Albumin/Globulin Ratio 0.8 (1.0-1.7) D-Dimer (Mary Kay) 0.31 ug/mlFEU (0.00-0.50) O2 Saturation 91 % (92-99) Arterial Blood pH 7.46 (7.35-7.45) Arterial Blood pCO2 at Patient Temp 40 mmHg (35-46) Arterial Blood pO2 at Patient Temp 59 mmHg (75-108) Arterial Blood HCO3 27 mmol/L (21-28) Arterial Blood Base Excess 3 mmol/L (-3-3) Oxyhemoglobin 90.1 % Methemoglobin 0.3 % (0.0-1.9) Carbon Monoxide, Quantitative 0.3 % (0.0-1.9) FiO2 21 Urine Collection Type Unknown Urine Color Yellow Urine Clarity Clear Urine pH 6.5 (<5.0-8.0) Urine Specific [place] 1.010 (1.000-1.030) Urine Protein Negative mg/dL (NEG-TRACE) Urine Glucose (UA) Negative mg/dL (NEG) Urine Ketones (Stick) Negative mg/dL (NEG) Urine Blood Negative (NEG) Urine Nitrite Negative (NEG) Urine Bilirubin Negative (NEG) Urine Urobilinogen Dipstick 1.0 mg/dL (0.2 mg/dL) Urine Leukocyte Esterase Negative (NEG) Urine RBC 0 /HPF (0-2) Urine WBC Rare /HPF (0-4) Urine Squamous Epithelial Cells Few /LPF Urine Bacteria Few /HPF (0-FEW) Laboratory Tests Test 11/27/20 12:56 11/27/20 13:33 11/27/20 14:28 11/27/20 19:46 White Blood Count 10.3 x10^3/uL (4.0-11.0) Red Blood Count 4.35 x10^6/uL (3.50-5.40) Hemoglobin 13.9 g/dL (12.0-15.5) Hematocrit 38.6 % (36.0-47.0) Mean Corpuscular Volume 89 fL (79-100) Mean Corpuscular Hemoglobin 32 pg (25-35) Mean Corpuscular Hemoglobin Concent 36 g/dL (31-37) Red Cell Distribution Width 13.4 % (11.5-14.5) Platelet Count 198 x10^3/uL (140-400) Neutrophils (%) (Auto) 82 % (31-73) Lymphocytes (%) (Auto) 10 % (24-48) Monocytes (%) (Auto) 8 % (0-9) Eosinophils (%) (Auto) 0 % (0-3) Basophils (%) (Auto) 0 % (0-3) Neutrophils # (Auto) 8.4 x10^3/uL (1.8-7.7) Lymphocytes # (Auto) 1.0 x10^3/uL (1.0-4.8) Monocytes # (Auto) 0.8 x10^3/uL (0.0-1.1) Eosinophils # (Auto) 0.0 x10^3/uL (0.0-0.7) Basophils # (Auto) 0.0 x10^3/uL (0.0-0.2) Sodium Level 134 mmol/L (136-145) Potassium Level 3.7 mmol/L (3.5-5.1) Chloride Level 98 mmol/L (98-107) Carbon Dioxide Level 28 mmol/L (21-32) Anion Gap 8 (6-14) Blood Urea Nitrogen 13 mg/dL (7-20) Creatinine 0.8 mg/dL (0.6-1.0) Estimated GFR (Cockcroft-Gault) 74.2 BUN/Creatinine Ratio 16 (6-20) Glucose Level 131 mg/dL (70-99) Calcium Level 8.9 mg/dL (8.5-10.1) Total Bilirubin 0.5 mg/dL (0.2-1.0) Aspartate Amino Transf (AST/SGOT) 49 U/L (15-37) Alanine Aminotransferase (ALT/SGPT) 55 U/L (14-59) Alkaline Phosphatase 59 U/L (46-116) Troponin I Quantitative < 0.017 ng/mL (0.000-0.055) PU-Otv-M-Type Natriuretic Peptide 39 pg/mL (0-124) Total Protein 7.2 g/dL (6.4-8.2) Albumin 3.1 g/dL (3.4-5.0) Albumin/Globulin Ratio 0.8 (1.0-1.7) D-Dimer (Mary Kay) 0.31 ug/mlFEU (0.00-0.50) O2 Saturation 91 % (92-99) Arterial Blood pH 7.46 (7.35-7.45) Arterial Blood pCO2 at Patient Temp 40 mmHg (35-46) Arterial Blood pO2 at Patient Temp 59 mmHg (75-108) Arterial Blood HCO3 27 mmol/L (21-28) Arterial Blood Base Excess 3 mmol/L (-3-3) Oxyhemoglobin 90.1 % Methemoglobin 0.3 % (0.0-1.9) Carbon Monoxide, Quantitative 0.3 % (0.0-1.9) FiO2 21 Urine Collection Type Unknown Urine Color Yellow Urine Clarity Clear Urine pH 6.5 (<5.0-8.0) Urine Specific [place] 1.010 (1.000-1.030) Urine Protein Negative mg/dL (NEG-TRACE) Urine Glucose (UA) Negative mg/dL (NEG) Urine Ketones (Stick) Negative mg/dL (NEG) Urine Blood Negative (NEG) Urine Nitrite Negative (NEG) Urine Bilirubin Negative (NEG) Urine Urobilinogen Dipstick 1.0 mg/dL (0.2 mg/dL) Urine Leukocyte Esterase Negative (NEG) Urine RBC 0 /HPF (0-2) Urine WBC Rare /HPF (0-4) Urine Squamous Epithelial Cells Few /LPF Urine Bacteria Few /HPF (0-FEW) Medications Current Medications Sodium Chloride 1,000 ml @ 1,000 mls/hr Q1H IV Last administered on 11/27/20at 13:00; Start 11/27/20 at 12:30; Stop 11/27/20 at 13:29; Status DC Dexamethasone Sodium Phosphate (Decadron) 10 mg 1X ONCE IV ; Start 11/27/20 at 12:30; Stop 11/27/20 at 12:31; Status Cancel Methylprednisolone Sodium Succinate (SOLU-Medrol 125MG VIAL) 125 mg 1X ONCE IV Last administered on 11/27/20at 13:00; Start 11/27/20 at 12:45; Stop 11/27/20 at 12:46; Status DC Azithromycin 250 ml @ 250 mls/hr 1X ONCE IV Last administered on 11/27/20at 14:31; Start 11/27/20 at 14:00; Stop 11/27/20 at 14:59; Status DC Acetaminophen (Tylenol) 650 mg PRN Q4HRS PRN PO FEVER > 100.3'F; Start 11/27/20 at 16:00; Stop 11/28/20 at 15:59 Piperacillin Sod/ Tazobactam Sod (Zosyn Per Pharmacy) 1 each PRN DAILY PRN MC SEE COMMENTS; Start 11/27/20 at 18:45 Doxycycline Hyclate 100 mg/ Dextrose 100 ml @ 50 mls/hr Q12HR IV Last administered on 11/28/20at 08:51; Start 11/27/20 at 20:00 Multivitamins (Thera M Plus) 1 tab DAILY PO Last administered on 11/28/20at 08:50; Start 11/28/20 at 09:00 Guaifenesin/ Codeine Phosphate (Robitussin Ac) 5 ml PRN Q6HRS PRN PO COUGH Last administered on 11/28/20at 02:56; Start 11/27/20 at 18:45 Aspirin (Aspirin Chewable) 81 mg DAILYWBKFT PO Last administered on 11/28/20at 08:50; Start 11/28/20 at 08:00 Methylprednisolone Sodium Succinate (SOLU-Medrol 40MG VIAL) 40 mg BID IV Last administered on 11/28/20at 08:50; Start 11/27/20 at 21:00 Piperacillin Sod/ Tazobactam Sod 3.375 gm/Sodium Chloride 50 ml @ 100 mls/hr Q6HRS IV Last administered on 11/28/20at 06:27; Start 11/27/20 at 19:00 Active Scripts Active Medrol (Methylprednisolone) 4 Mg Tab.ds.pk 1 Pkg PO UD Ventolin Hfa Inhaler (Albuterol Sulfate) 18 Gm Hfa.aer.ad 2 Puff INH QID PRN 7 Days Medrol (Methylprednisolone) 4 Mg Tab.ds.pk 1 Pkg PO UD Vitals/I & O Vital Sign - Last 24 Hours 11/27/20 11/27/20 11/27/20 11/27/20 12:24 12:33 14:27 14:33 Temp 98.4 98.4 Pulse 92 88 88 90 Resp B/P (MAP) 156/86 (91) 143/83 (103) 162/93 (116) 161/91 (114) Pulse Ox 94 93 93 93 O2 Delivery Room Air Room Air Room Air Room Air 11/27/20 11/27/20 11/27/20 11/27/20 15:33 16:33 17:33 18:33 Pulse 92 92 90 96 Resp B/P (MAP) 142/78 (99) 144/75 (98) 133/85 (101) 143/78 (99) Pulse Ox 92 93 93 92 O2 Delivery Room Air Room Air Room Air Room Air 11/27/20 11/27/20 11/27/20 11/27/20 19:03 20:03 20:33 21:03 Pulse 92 88 92 86 Resp B/P (MAP) 139/72 (94) 133/81 (98) 148/85 (106) 148/79 (102) Pulse Ox 92 92 93 92 O2 Delivery Room Air Room Air Room Air Room Air 11/27/20 11/27/20 11/27/20 11/27/20 21:33 22:03 22:33 23:03 Pulse 86 84 82 86 Resp B/P (MAP) 144/85 (104) 150/85 (106) 145/86 (105) 148/81 (103) Pulse Ox 92 92 92 91 O2 Delivery Room Air Room Air Room Air Room Air 11/27/20 11/28/20 11/28/2021 23:33 00:33 01:33 02:00 Pulse 82 82 96 Resp 28 28 28 B/P (MAP) 140/81 (100) 156/87 (110) 155/84 (107) Pulse Ox 90 91 91 O2 Delivery Room Air Room Air Room Air Room Air 11/28/20 11/28/20 11/28/20 03:55 07:00 08:30 Temp 98.0 98.6 98.0 98.6 Pulse 79 80 Resp 16 20 B/P (MAP) 146/92 (110) 149/86 (107) Pulse Ox 90 92 O2 Delivery Room Air Room Air Room Air Intake and Output 11/27/20 11/27/20 11/28/20 15:00 23:00 07:00 Intake Total 1400 ml 300 ml Balance 1400 ml 300 ml Justicifation of Admission Dx: Justifications for Admission: Justification of Admission Dx: Yes Sepsis: Hypoxemia DOMI BRITO MD Nov 28, 2020 10:37
[2020-11-28 11:21] VITALS: BP 150/91
--- NOTE | 2020-11-28 12:18 | NUR ---
SW following. Discussed with RN, pt from home with , room air, cardiac diet, ad andrew, COVID-19 positive. 6 minute walk ordered. SW awaiting result.
[2020-11-28 15:28] VITALS: BP 149/97
[2020-11-28 19:00] VITALS: BP 139/68
[2020-11-28] MEDS: LACTOBACILLUS RHAMNOSUS GG 1 CAPSULE. PO SCH (20:21)
[2020-11-28 23:00] VITALS: BP 146/82
[2020-11-29 03:00] VITALS: BP 135/82
[2020-11-29] MEDS: PIPERACILLIN/TAZOBACTAM 3.375 GM in IV NORMAL SALINE 50ML 50 ML IV SCH ×3 (05:39→18:06)
[2020-11-29] MEDS: guaiFENesin/CODEINE 100mg/10mg 5 ML LIQUID PO PRN ×2 (05:47→13:53)
[2020-11-29 07:00] VITALS: BP 133/84
[2020-11-29] MEDS: MULTIVITAMIN with MINERAL TABLET. PO SCH (09:26)
[2020-11-29] MEDS: LACTOBACILLUS RHAMNOSUS GG 1 CAPSULE. PO SCH ×2 (09:26→21:03)
[2020-11-29] MEDS: DOXYCYCLINE HYCLATE 100 MG in IV DEXTROSE 5% 100ML 100 ML IV SCH ×2 (09:28→21:03)
[2020-11-29] MEDS: ASPIRIN CHEWABLE 81 MG TABLET. PO SCH (09:29)
[2020-11-29] MEDS: methylPREDNISolone SOD SUCC PF 40 MG/ML VIAL. IV SCH (09:29)
[2020-11-29 11:00] VITALS: BP 132/68
--- NOTE | 2020-11-29 14:27 | PDOC ---
[employer] PROGRESS NOTE Date of Service DOS: DATE: 11/29/20 TIME: 14:22 Chief Complaint Chief Complaint ASSESSMENT AND PLAN: COVID-19, respiratory failure. spo2 90 % RA LAST NIGHT admitted. IV Solu-Medrol, IV antibiotics, vitamins, minerals, beta agonist q 4 hrs, oxygen support , codeine cough syrup and aspirin. consider remdesivir if she becomes hypoxic, but at this point she does not qualify. Home medications, deep vein thrombosis prophylaxis 6 MIN WALK History of Present Illness History of Present Illness 11-28 REMAINS soa WITH MILD ACTIVITY, DESIRES TO STAY ANOTHER DAY DUE TO DYSPNEA D/W RN CONT IV DOXY 6 MIN WALK TODAY COVID-19, respiratory failure. spo2 90 % RA LAST NIGHT admitted. IV Solu-Medrol, IV antibiotics, vitamins, minerals, beta agonist q 4 hrs, oxygen support , codeine cough syrup and aspirin. 11/29/2020: Afebrile, currently breathing 4 L nasal cannula. Will initiate remdesivir for 5-day course; monitor daily LFTs. Continue treatment with IV steroids, but changed to Decadron 6 mg daily, as the standard of care. Continue empiric antibiotics. Vitals/I&O Vitals/I&O: Vital Signs Date Time Temp Pulse Resp B/P (MAP) Pulse Ox O2 Delivery O2 Flow Rate FiO2 11/29/20 11:00 98.2 84 18 132/68 (89) 96 Nasal Cannula 4.0 98.2 I & O 11/28/20 11/28/20 11/29/20 15:00 23:00 07:00 Intake Total 590 ml 170 ml 640 ml Balance 590 ml 170 ml 640 ml Physical Exam Physical Exam: Constitutional: Well developed, well nourished, no acute distress, non-toxic appearance. [] HENT: Normocephalic, atraumatic, bilateral external ears normal, oropharynx moist, no oral exudates, nose normal. [] Eyes: PERRLA, EOMI, conjunctiva normal, no discharge. [] Neck: Normal range of motion, no tenderness, supple, no stridor. [] Cardiovascular:Heart rate regular rhythm, no murmur [] Lungs & Thorax: Bilateral upper breath sounds clear lower diminished to auscultation [] Abdomen: Bowel sounds normal, soft, no tenderness, no masses, no pulsatile masses. [] Skin: Warm, dry, no erythema, no rash. [] Back: No tenderness, no CVA tenderness. [] Extremities: No tenderness, no cyanosis, no clubbing, ROM intact, no edema. [] Neurologic: Alert and oriented X 3, normal motor function, normal sensory function, no focal deficits noted. [] Psychologic: Affect normal, judgement normal, mood normal. Anxious [] Abdomen: Normal bowel sounds, Soft Extremities: No edema Assessment and Plan Assessmemt and Plan Problems Medical Problems: (1) Pneumonia due to COVID-19 virus Status: Acute Comment Review of Relevant I have reviewed the following items jey (where applicable) has been applied. Medications: Current Medications Medications (Trade) Dose Ordered Sig/Lynn Route PRN Reason Start Time Stop Time Status Last Admin Dose Admin Lactobacillus Rhamnosus (Culturelle) 1 cap BID PO 11/28/20 21:00 11/29/20 09:26 Justifications for Admission Other Justification VALENTIN SON MD Nov 29, 2020 14:27
[2020-11-29 15:00] VITALS: BP 127/62
[2020-11-29] MEDS ORDERED: REMDESIVIR LOAD in IV NORMAL SALINE 250ML TV IV ONE (15:00)
[2020-11-29] MEDS: ENOXAPARIN 40 MG/0.4 ML SYRINGE. SQ SCH ×2 (15:51→21:03)
[2020-11-29 23:00] VITALS: BP 140/66
[2020-11-30] MEDS: PIPERACILLIN/TAZOBACTAM 3.375 GM in IV NORMAL SALINE 50ML 50 ML IV SCH ×5 (00:55→23:56)
[2020-11-30] MEDS: guaiFENesin/CODEINE 100mg/10mg 5 ML LIQUID PO PRN ×4 (04:58→23:55)
[2020-11-30 07:00] VITALS: BP 127/88
[2020-11-30] MEDS: DOXYCYCLINE HYCLATE 100 MG in IV DEXTROSE 5% 100ML 100 ML IV SCH ×2 (08:36→20:39)
[2020-11-30] MEDS: DEXAMETHASONE SOD PHOS 4 MG/ML VIAL IVP SCH (08:38)
[2020-11-30] MEDS: ZINC SULFATE 220 MG CAPSULE. PO SCH (08:39)
[2020-11-30] MEDS: ASPIRIN CHEWABLE 81 MG TABLET. PO SCH (08:39)
[2020-11-30] MEDS: ENOXAPARIN 40 MG/0.4 ML SYRINGE. SQ SCH ×2 (08:39→20:38)
[2020-11-30 08:40] LABS: ALBUMIN 2.6 g/dL (3.4-5.0); DIRECT BILIRUBIN 0.3 mg/dL (0.0-0.2); TOTAL BILIRUBIN 0.7 mg/dL (0.2-1.0); TOTAL PROTEIN 5.7 g/dL (6.4-8.2)
[2020-11-30] MEDS: LACTOBACILLUS RHAMNOSUS GG 1 CAPSULE. PO SCH ×2 (08:40→20:39)
[2020-11-30] MEDS: ASCORBIC ACID 1,000 MG TABLET PO SCH (08:40)
[2020-11-30] MEDS: MULTIVITAMIN with MINERAL TABLET. PO SCH (08:40)
[2020-11-30 08:59] LABS: CALCIUM 8.3 mg/dL (8.5-10.1); CREATININE 0.7 mg/dL (0.6-1.0); GFR 86.6; POTASSIUM 3.9 mmol/L (3.5-5.1)
--- NOTE | 2020-11-30 10:32 | PDOC ---
PROGRESS NOTES Date of Service: DATE: 11/30/20 TIME: 10:31 Chief Complaint Chief Complaint ASSESSMENT AND PLAN: COVID-19, respiratory failure. spo2 90 % RA LAST NIGHT admitted. IV Solu-Medrol, IV antibiotics, vitamins, minerals, beta agonist q 4 hrs, oxygen support , codeine cough syrup and aspirin. consider remdesivir if she becomes hypoxic, but at this point she does not qualify. Home medications, deep vein thrombosis prophylaxis 6 MIN WALK History of Present Illness History of Present Illness 11-28 REMAINS soa WITH MILD ACTIVITY, DESIRES TO STAY ANOTHER DAY DUE TO DYSPNEA D/W RN CONT IV DOXY 6 MIN WALK TODAY COVID-19, respiratory failure. spo2 90 % RA LAST NIGHT admitted. IV Solu-Medrol, IV antibiotics, vitamins, minerals, beta agonist q 4 hrs, oxygen support , codeine cough syrup and aspirin. 11/29/2020: Afebrile, currently breathing 4 L nasal cannula. Will initiate remdesivir for 5-day course; monitor daily LFTs. Continue treatment with IV steroids, but changed to Decadron 6 mg daily, as the standard of care. Continue empiric antibiotics. 11/30/2020: Afebrile, 4 L nasal cannula. initiate remdesivir for 5-day course; monitor daily LFTs. treatment with IV steroids, changed to Decadron 6 mg daily, as the standard of care. Continue empiric antibiotics. D/W RN Vitals Vitals Vital Signs Date Time Temp Pulse Resp B/P (MAP) Pulse Ox O2 Delivery O2 Flow Rate FiO2 11/30/20 07:00 98.0 73 20 127/88 (101) 97 Nasal Cannula 4.0 98.0 Physical Exam Physical Exam Constitutional: Well developed, well nourished, no acute distress, non-toxic appearance. [] HENT: Normocephalic, atraumatic, bilateral external ears normal, oropharynx moist, no oral exudates, nose normal. [] Eyes: PERRLA, EOMI, conjunctiva normal, no discharge. [] Neck: Normal range of motion, no tenderness, supple, no stridor. [] Cardiovascular:Heart rate regular rhythm, no murmur [] Lungs & Thorax: Bilateral upper breath sounds clear lower diminished to auscultation [] Abdomen: Bowel sounds normal, soft, no tenderness, no masses, no pulsatile masses. [] Skin: Warm, dry, no erythema, no rash. [] Back: No tenderness, no CVA tenderness. [] Extremities: No tenderness, no cyanosis, no clubbing, ROM intact, no edema. [] Neurologic: Alert and oriented X 3, normal motor function, normal sensory function, no focal deficits noted. [] Psychologic: Affect normal, judgement normal, mood normal. Anxious [] Abdomen: Normal bowel sounds, Soft Extremities: No edema Labs LABS Laboratory Tests Test 11/30/20 07:30 Sodium Level 137 mmol/L (136-145) Potassium Level 3.9 mmol/L (3.5-5.1) Chloride Level 103 mmol/L (98-107) Carbon Dioxide Level 27 mmol/L (21-32) Anion Gap 7 (6-14) Blood Urea Nitrogen 19 mg/dL (7-20) Creatinine 0.7 mg/dL (0.6-1.0) Estimated GFR (Cockcroft-Gault) 86.6 Glucose Level 73 mg/dL (70-99) Calcium Level 8.3 mg/dL (8.5-10.1) Total Bilirubin 0.7 mg/dL (0.2-1.0) Direct Bilirubin 0.3 mg/dL (0.0-0.2) Aspartate Amino Transf (AST/SGOT) 42 U/L (15-37) Alanine Aminotransferase (ALT/SGPT) 87 U/L (14-59) Alkaline Phosphatase 44 U/L (46-116) Total Protein 5.7 g/dL (6.4-8.2) Albumin 2.6 g/dL (3.4-5.0) Assessment and Plan Assessmemt and Plan Problems Medical Problems: (1) Pneumonia due to COVID-19 virus Status: Acute Comment Review of Relevant I have reviewed the following items jey (where applicable) has been applied. Labs Laboratory Tests Test 11/30/20 07:30 Sodium Level 137 mmol/L (136-145) Potassium Level 3.9 mmol/L (3.5-5.1) Chloride Level 103 mmol/L (98-107) Carbon Dioxide Level 27 mmol/L (21-32) Anion Gap 7 (6-14) Blood Urea Nitrogen 19 mg/dL (7-20) Creatinine 0.7 mg/dL (0.6-1.0) Estimated GFR (Cockcroft-Gault) 86.6 Glucose Level 73 mg/dL (70-99) Calcium Level 8.3 mg/dL (8.5-10.1) Total Bilirubin 0.7 mg/dL (0.2-1.0) Direct Bilirubin 0.3 mg/dL (0.0-0.2) Aspartate Amino Transf (AST/SGOT) 42 U/L (15-37) Alanine Aminotransferase (ALT/SGPT) 87 U/L (14-59) Alkaline Phosphatase 44 U/L (46-116) Total Protein 5.7 g/dL (6.4-8.2) Albumin 2.6 g/dL (3.4-5.0) Laboratory Tests Test 11/30/20 07:30 Sodium Level 137 mmol/L (136-145) Potassium Level 3.9 mmol/L (3.5-5.1) Chloride Level 103 mmol/L (98-107) Carbon Dioxide Level 27 mmol/L (21-32) Anion Gap 7 (6-14) Blood Urea Nitrogen 19 mg/dL (7-20) Creatinine 0.7 mg/dL (0.6-1.0) Estimated GFR (Cockcroft-Gault) 86.6 Glucose Level 73 mg/dL (70-99) Calcium Level 8.3 mg/dL (8.5-10.1) Total Bilirubin 0.7 mg/dL (0.2-1.0) Direct Bilirubin 0.3 mg/dL (0.0-0.2) Aspartate Amino Transf (AST/SGOT) 42 U/L (15-37) Alanine Aminotransferase (ALT/SGPT) 87 U/L (14-59) Alkaline Phosphatase 44 U/L (46-116) Total Protein 5.7 g/dL (6.4-8.2) Albumin 2.6 g/dL (3.4-5.0) Medications Current Medications Sodium Chloride 1,000 ml @ 1,000 mls/hr Q1H IV Last administered on 11/27/20at 13:00; Start 11/27/20 at 12:30; Stop 11/27/20 at 13:29; Status DC Dexamethasone Sodium Phosphate (Decadron) 10 mg 1X ONCE IV ; Start 11/27/20 at 12:30; Stop 11/27/20 at 12:31; Status Cancel Methylprednisolone Sodium Succinate (SOLU-Medrol 125MG VIAL) 125 mg 1X ONCE IV Last administered on 11/27/20at 13:00; Start 11/27/20 at 12:45; Stop 11/27/20 at 12:46; Status DC Azithromycin 250 ml @ 250 mls/hr 1X ONCE IV Last administered on 11/27/20at 14:31; Start 11/27/20 at 14:00; Stop 11/27/20 at 14:59; Status DC Acetaminophen (Tylenol) 650 mg PRN Q4HRS PRN PO FEVER > 100.3'F; Start 11/27/20 at 16:00; Stop 11/28/20 at 15:59; Status DC Piperacillin Sod/ Tazobactam Sod (Zosyn Per Pharmacy) 1 each PRN DAILY PRN MC SEE COMMENTS; Start 11/27/20 at 18:45 Doxycycline Hyclate 100 mg/ Dextrose 100 ml @ 50 mls/hr Q12HR IV Last administered on 11/30/20at 08:36; Start 11/27/20 at 20:00 Multivitamins (Thera M Plus) 1 tab DAILY PO Last administered on 11/30/20at 08:40; Start 11/28/20 at 09:00 Guaifenesin/ Codeine Phosphate (Robitussin Ac) 5 ml PRN Q6HRS PRN PO COUGH Last administered on 11/30/20at 04:58; Start 11/27/20 at 18:45 Aspirin (Aspirin Chewable) 81 mg [id number] PO Last administered on 11/30/20at 08:39; Start 11/28/20 at 08:00 Methylprednisolone Sodium Succinate (SOLU-Medrol 40MG VIAL) 40 mg BID IV Last administered on 11/29/20at 09:29; Start 11/27/20 at 21:00; Stop 11/29/20 at 14:28; Status DC Piperacillin Sod/ Tazobactam Sod 3.375 gm/Sodium Chloride 50 ml @ 100 mls/hr Q6HRS IV Last administered on 11/30/20at 04:58; Start 11/27/20 at 19:00 Lactobacillus Rhamnosus (Culturelle) 1 cap BID PO Last administered on 11/30/20at 08:40; Start 11/28/20 at 21:00 Enoxaparin Sodium (Lovenox 40mg Syringe) 40 mg Q12HR SQ Last administered on 11/30/20at 08:39; Start 11/29/20 at 14:00 Ascorbic Acid (Vitamin C) 1,000 mg DAILY PO Last administered on 11/30/20at 08:40; Start 11/30/20 at 09:00 Zinc Sulfate (Orazinc) 220 mg DAILY PO Last administered on 11/30/20at 08:39; Start 11/30/20 at 09:00 Remdesivir 200 mg/ Sodium Chloride 210 ml @ 210 mls/hr 1X ONCE IV Last administered on 11/29/20at 15:51; Start 11/29/20 at 15:00; Stop 11/29/20 at 15:59; Status DC Remdesivir 100 mg/ Sodium Chloride 230 ml @ 460 mls/hr Q24H IV ; Start 11/30/20 at 15:00; Stop 12/03/20 at 15:29 Dexamethasone Sodium Phosphate (Decadron) 6 mg DAILY IVP Last administered on 11/30/20at 08:38; Start 11/30/20 at 09:00 Active Scripts Active Medrol (Methylprednisolone) 4 Mg Tab.ds.pk 1 Pkg PO UD Ventolin Hfa Inhaler (Albuterol Sulfate) 18 Gm Hfa.aer.ad 2 Puff INH QID PRN 7 Days Medrol (Methylprednisolone) 4 Mg Tab.ds.pk 1 Pkg PO UD Vitals/I & O Vital Sign - Last 24 Hours 11/29/20 11/29/20 11/29/20 11/29/20 11:00 15:00 20:05 23:00 Temp 98.2 98.0 98.6 98.2 98.0 98.6 Pulse 84 78 73 Resp 18 18 18 B/P (MAP) 132/68 (89) 127/62 (83) 140/66 (90) Pulse Ox 96 95 95 O2 Delivery Nasal Cannula Nasal Cannula Nasal Cannula Nasal Cannula O2 Flow Rate 4.0 4.0 4.0 4.0 11/30/20 07:00 Temp 98.0 98.0 Pulse 73 Resp 20 B/P (MAP) 127/88 (101) Pulse Ox 97 O2 Delivery Nasal Cannula O2 Flow Rate 4.0 Intake and Output 11/29/20 11/29/20 11/30/20 14:59 22:59 06:59 Intake Total 250 ml 500 ml 600 ml Balance 250 ml 500 ml 600 ml Justicifation of Admission Dx: Justifications for Admission: Justification of Admission Dx: Yes Sepsis: Hypoxemia DOMI BRITO MD Nov 30, 2020 10:32
[2020-11-30 11:00] VITALS: BP 122/76
--- NOTE | 2020-11-30 12:17 | NUR ---
SW following. Discussed with RN, pt from home with , 4L (does not use oxygen at home), pt failed 6 minute walk - now on Remdesivir. COVID-19 positive. SW will continue to follow.
[2020-11-30 15:00] VITALS: BP 128/77
[2020-11-30] MEDS: REMDESIVIR 100mg in NORMAL SALINE 250ML X 4 DAYS IV SCH (15:56)
[2020-11-30 19:00] VITALS: BP 128/70
[2020-11-30 23:00] VITALS: BP 139/79
[2020-12-01] MEDS: PIPERACILLIN/TAZOBACTAM 3.375 GM in IV NORMAL SALINE 50ML 50 ML IV SCH ×3 (05:50→18:15)
[2020-12-01] MEDS: guaiFENesin/CODEINE 100mg/10mg 5 ML LIQUID PO PRN ×3 (06:28→21:06)
[2020-12-01 07:00] VITALS: BP 112/66
[2020-12-01 08:28] LABS: ALBUMIN 2.6 g/dL (3.4-5.0); DIRECT BILIRUBIN 0.2 mg/dL (0.0-0.2); TOTAL BILIRUBIN 0.8 mg/dL (0.2-1.0); TOTAL PROTEIN 6.2 g/dL (6.4-8.2)
[2020-12-01] MEDS: DEXAMETHASONE SOD PHOS 4 MG/ML VIAL IVP SCH (09:56)
[2020-12-01] MEDS: LACTOBACILLUS RHAMNOSUS GG 1 CAPSULE. PO SCH ×2 (09:56→21:06)
[2020-12-01] MEDS: ASCORBIC ACID 1,000 MG TABLET PO SCH (09:57)
[2020-12-01] MEDS: MULTIVITAMIN with MINERAL TABLET. PO SCH (09:57)
[2020-12-01] MEDS: ZINC SULFATE 220 MG CAPSULE. PO SCH (09:57)
[2020-12-01] MEDS: ASPIRIN CHEWABLE 81 MG TABLET. PO SCH (09:57)
[2020-12-01] MEDS: ENOXAPARIN 40 MG/0.4 ML SYRINGE. SQ SCH ×2 (09:58→21:06)
[2020-12-01] MEDS: DOXYCYCLINE HYCLATE 100 MG in IV DEXTROSE 5% 100ML 100 ML IV SCH ×2 (09:58→21:06)
[2020-12-01 11:00] VITALS: BP 119/78
--- NOTE | 2020-12-01 13:31 | NUR ---
SS following for discharge planning. SS reviewed pt chart and discussed with pt RN. Pt is currently requiring oxygen at four liters nasal canula. Pt has no home oxygen. COVID19 positive. Pt on IV Decadron, IV Remdesivir, IV Zosyn, and IV Doxycycline. SS will continue to follow for discharge planning.
--- NOTE | 2020-12-01 13:33 | PDOC ---
[facility] [facility] PROGRESS NOTE Date of Service DOS: DATE: 12/01/20 TIME: 13:23 Chief Complaint Chief Complaint COVID-19 Respiratory Failure Shortness of breath Cough Weakness Recent Pneumonia History of Present Illness History of Present Illness 11-28: REMAINS soa WITH MILD ACTIVITY, DESIRES TO STAY ANOTHER DAY DUE TO DYSPNEA. D/W RN 11/29/2020: Afebrile, currently breathing 4 L nasal cannula. Will initiate remdesivir for 5-day course; monitor daily LFTs. Continue treatment with IV steroids, but changed to Decadron 6 mg daily, as the standard of care. Continue empiric antibiotics. 11/30/2020: Afebrile, 4 L nasal cannula. initiate remdesivir for 5-day course; monitor daily LFTs. treatment with IV steroids. changed to Decadron 6 mg daily, as the standard of care. Continue empiric antibiotics. D/W RN 12/01: The patient was seen and evaluated in her room this morning. We discussed the patient's current disposition with her nurse and reviewed her chart. She is currently on 4 L of Oxygen and is on Day 3 of Remdesivir. The patient continues to remain on the COVID-19 Protocol (Vitamin C, Aspirin, Azithromycin, Dexamethasone, Doxycycline, Lovenox, Guaifenesin/Codeine, Multivitamin, Piperacillin/Tazobactam, Remdesivir, Zinc). The patient did not receive the COVID-19 vaccination. Vitals/I&O Vitals/I&O: Vital Signs Date Time Temp Pulse Resp B/P (MAP) Pulse Ox O2 Delivery O2 Flow Rate FiO2 12/01/20 11:00 97.7 94 18 119/78 (92) 100 Nasal Cannula 4.0 97.7 I & O 11/30/20 11/30/20 12/01/20 15:00 23:00 07:00 Intake Total 400 ml 200 ml 300 ml Output Total 1 ml Balance 399 ml 200 ml 300 ml Physical Exam Physical Exam: Constitutional: Well developed, well nourished, no acute distress, non-toxic appearance. [] HENT: Normocephalic, atraumatic, bilateral external ears normal, oropharynx moist, no oral exudates, nose normal. [] Eyes: PERRLA, EOMI, conjunctiva normal, no discharge. [] Neck: Normal range of motion, no tenderness, supple, no stridor. [] Cardiovascular:Heart rate regular rhythm, no murmur [] Lungs & Thorax: Bilateral upper breath sounds clear lower diminished to auscultation [] Abdomen: Bowel sounds normal, soft, no tenderness, no masses, no pulsatile mas ses. [] Skin: Warm, dry, no erythema, no rash. [] Back: No tenderness, no CVA tenderness. [] Extremities: No tenderness, no cyanosis, no clubbing, ROM intact, no edema. [] Neurologic: Alert and oriented X 3, normal motor function, normal sensory function, no focal deficits noted. [] Psychologic: Affect normal, judgement normal, mood normal. Anxious [] General: Alert, Oriented X3, Cooperative Heart: Regular rate, No murmurs Lungs: Clear Abdomen: Normal bowel sounds Extremities: No clubbing, No edema Skin: No rashes Labs Labs: Laboratory Tests Test 12/01/20 06:40 Total Bilirubin 0.8 mg/dL (0.2-1.0) Direct Bilirubin 0.2 mg/dL (0.0-0.2) Aspartate Amino Transf (AST/SGOT) 32 U/L (15-37) Alanine Aminotransferase (ALT/SGPT) 97 U/L (14-59) Alkaline Phosphatase 46 U/L (46-116) Total Protein 6.2 g/dL (6.4-8.2) Albumin 2.6 g/dL (3.4-5.0) Review of Systems Review of Systems: No Bleeding No bruising No headache Assessment and Plan Assessmemt and Plan Problems Medical Problems: (1) Pneumonia due to COVID-19 virus Status: Acute Assessment: 1. COVID-19 2. Respiratory Failure 3. Shortness of Breath 4. Cough 5. Weakness 6. Recent Pneumonia Plan: 1. Continue respiratory isolation 2. Full Code 3. Continue COVID-19 Protocol (Remdesevir until 12/03) 4. Continue DVT Prophylaxis (Lovenox) 5. Home Medications Comment Review of Relevant I have reviewed the following items jey (where applicable) has been applied. Medications: Current Medications Medications (Trade) Dose Ordered Sig/Lynn Route PRN Reason Start Time Stop Time Status Last Admin Dose Admin Remdesivir 100 mg/ Sodium Chloride 230 ml @ 460 mls/hr Q24H IV 11/30/20 15:00 12/03/20 15:29 11/30/20 15:56 Justifications for Admission Other Justification BEBO REZA III DO Dec 01, 2020 13:33
[2020-12-01 15:00] VITALS: BP 115/71
[2020-12-01] MEDS: REMDESIVIR 100mg in NORMAL SALINE 250ML X 4 DAYS IV SCH (16:46)
[2020-12-01 19:00] VITALS: BP 100/72
[2020-12-01 23:00] VITALS: BP 123/78
[2020-12-02] MEDS: PIPERACILLIN/TAZOBACTAM 3.375 GM in IV NORMAL SALINE 50ML 50 ML IV SCH ×4 (00:12→17:40)
[2020-12-02 03:00] VITALS: BP 90/48
[2020-12-02 07:00] VITALS: BP 108/72
[2020-12-02] MEDS: ZINC SULFATE 220 MG CAPSULE. PO SCH (09:45)
[2020-12-02] MEDS: LACTOBACILLUS RHAMNOSUS GG 1 CAPSULE. PO SCH ×2 (09:45→21:00)
[2020-12-02] MEDS: ENOXAPARIN 40 MG/0.4 ML SYRINGE. SQ SCH ×2 (09:46→20:41)
[2020-12-02] MEDS: MULTIVITAMIN with MINERAL TABLET. PO SCH (09:46)
[2020-12-02] MEDS: ASCORBIC ACID 1,000 MG TABLET PO SCH (09:46)
[2020-12-02] MEDS: ASPIRIN CHEWABLE 81 MG TABLET. PO SCH (09:46)
[2020-12-02] MEDS: guaiFENesin/CODEINE 100mg/10mg 5 ML LIQUID PO PRN ×3 (09:46→22:36)
[2020-12-02] MEDS: DEXAMETHASONE SOD PHOS 4 MG/ML VIAL IVP SCH (09:47)
[2020-12-02] MEDS: DOXYCYCLINE HYCLATE 100 MG in IV DEXTROSE 5% 100ML 100 ML IV SCH ×2 (09:48→20:36)
--- NOTE | 2020-12-02 10:42 | PDOC ---
[facility] [facility] PROGRESS NOTE Date of Service DOS: DATE: 12/02/20 TIME: 10:38 Chief Complaint Chief Complaint COVID-19 Respiratory Failure Shortness of breath Cough Weakness Recent Pneumonia History of Present Illness History of Present Illness 8: REMAINS soa WITH MILD ACTIVITY, DESIRES TO STAY ANOTHER DAY DUE TO DYSPNEA. D/W RN 11/29/2020: Afebrile, currently breathing 4 L nasal cannula. Will initiate remdesivir for 5-day course; monitor daily LFTs. Continue treatment with IV steroids, but changed to Decadron 6 mg daily, as the standard of care. Continue empiric antibiotics. 11/30/2020: Afebrile, 4 L nasal cannula. initiate remdesivir for 5-day course; monitor daily LFTs. treatment with IV steroids. changed to Decadron 6 mg daily, as the standard of care. Continue empiric antibiotics. D/W RN 12/01: The patient was seen and evaluated in her room this morning. We discussed the patient's current disposition with her nurse and reviewed her chart. She is currently on 4 L of Oxygen and is on Day 3 of Remdesivir. The patient continues to remain on the COVID-19 Protocol (Vitamin C, Aspirin, Azithromycin, Dexamethasone, Doxycycline, Lovenox, Guaifenesin/Codeine, Multivitamin, Piperacillin/Tazobactam, Remdesivir, Zinc). The patient did not receive the COVID-19 vaccination. 12/02: Mrs. Camp was seen and evaluated this morning in her room. We discussed her current disposition with her nurse and reviewed her chart. She is currently on 5L of Oxygen and is on Day 4 of her Remdesivir treatment. The patient continue to remian on the COVID-19 Protocol (Vitamin C, Aspirin, Azithromycin, Dexamethasone, Doxycycline, Lovenox, Guaifenesin/Codeine, Mutivitamin, Piperacil kya/Tazobactam, Remdesivir, Zinc). Vitals/I&O Vitals/I&O: Vital Signs Date Time Temp Pulse Resp B/P (MAP) Pulse Ox O2 Delivery O2 Flow Rate FiO2 12/02/20 07:00 97.7 68 18 108/72 (84) 94 Nasal Cannula 4.0 97.7 Physical Exam Physical Exam: Constitutional: Well developed, well nourished, no acute distress, non-toxic appearance. [] HENT: Normocephalic, atraumatic, bilateral external ears normal, oropharynx moist, no oral exudates, nose normal. [] Eyes: PERRLA, EOMI, conjunctiva normal, no discharge. [] Neck: Normal range of motion, no tenderness, supple, no stridor. [] Cardiovascular:Heart rate regular rhythm, no murmur [] Lungs & Thorax: Bilateral upper breath sounds clear lower diminished to auscultation [] Abdomen: Bowel sounds normal, soft, no tenderness, no masses, no pulsatile masses. [] Skin: Warm, dry, no erythema, no rash. [] Back: No tenderness, no CVA tenderness. [] Extremities: No tenderness, no cyanosis, no clubbing, ROM intact, no edema. [] Neurologic: Alert and oriented X 3, normal motor function, normal sensory function, no focal deficits noted. [] Psychologic: Affect normal, judgement normal, mood normal. Anxious [] General: Alert, Oriented X3, Cooperative Heart: Regular rate, No murmurs Lungs: Clear Abdomen: Normal bowel sounds Extremities: No clubbing, No edema Skin: No rashes Review of Systems Review of Systems: No headache No bleeding Assessment and Plan Assessmemt and Plan Problems Medical Problems: (1) Pneumonia due to COVID-19 virus Status: Acute Assessment: 1. COVID-19 2. Respiratory Failure 3. Cough 4. Shortness of Breath 5. Weakness 6. Recent Pneumonia Plan: 1. Continue COVID-19 Protocol (Remdesivir until 12/03) 2. Continue respiratory isolation 3. Full Code 4. Continue DVT Prophylaxis (Lovenox) 5. Home Medications Comment Review of Relevant I have reviewed the following items jey (where applicable) has been applied. Justifications for Admission Other Justification BEBO REZA III DO Dec 02, 2020 10:42
[2020-12-02 11:00] VITALS: BP 188/68
[2020-12-02 11:00] LABS: CALCIUM 8.2 mg/dL (8.5-10.1); CREATININE 0.7 mg/dL (0.6-1.0); GFR 86.6; POTASSIUM 3.5 mmol/L (3.5-5.1)
[2020-12-02 11:04] LABS: ALBUMIN 2.4 g/dL (3.4-5.0); DIRECT BILIRUBIN 0.2 mg/dL (0.0-0.2); TOTAL BILIRUBIN 0.7 mg/dL (0.2-1.0); TOTAL PROTEIN 5.8 g/dL (6.4-8.2)
[2020-12-02 15:00] VITALS: BP 122/82
[2020-12-02] MEDS: REMDESIVIR 100mg in NORMAL SALINE 250ML X 4 DAYS IV SCH (16:44)
[2020-12-02 19:00] VITALS: BP 142/79
[2020-12-02 23:00] VITALS: BP 137/82
[2020-12-03] MEDS: PIPERACILLIN/TAZOBACTAM 3.375 GM in IV NORMAL SALINE 50ML 50 ML IV SCH ×4 (00:08→17:39)
[2020-12-03 03:00] VITALS: BP 134/87
[2020-12-03 07:00] VITALS: BP 145/90
[2020-12-03] MEDS: LACTOBACILLUS RHAMNOSUS GG 1 CAPSULE. PO SCH ×2 (09:20→21:09)
[2020-12-03] MEDS: ASPIRIN CHEWABLE 81 MG TABLET. PO SCH (09:20)
[2020-12-03] MEDS: ZINC SULFATE 220 MG CAPSULE. PO SCH (09:20)
[2020-12-03] MEDS: ASCORBIC ACID 1,000 MG TABLET PO SCH (09:20)
[2020-12-03] MEDS: ENOXAPARIN 40 MG/0.4 ML SYRINGE. SQ SCH ×2 (09:20→21:10)
[2020-12-03] MEDS: DEXAMETHASONE SOD PHOS 4 MG/ML VIAL IVP SCH (09:20)
[2020-12-03] MEDS: MULTIVITAMIN with MINERAL TABLET. PO SCH (09:20)
[2020-12-03] MEDS: DOXYCYCLINE HYCLATE 100 MG in IV DEXTROSE 5% 100ML 100 ML IV SCH ×2 (09:21→21:10)
[2020-12-03] MEDS: guaiFENesin/CODEINE 100mg/10mg 5 ML LIQUID PO PRN ×2 (09:37→17:49)
[2020-12-03 09:54] LABS: ALBUMIN 2.5 g/dL (3.4-5.0); DIRECT BILIRUBIN 0.2 mg/dL (0.0-0.2); TOTAL BILIRUBIN 0.8 mg/dL (0.2-1.0)
[2020-12-03 11:00] VITALS: BP 138/81
--- NOTE | 2020-12-03 13:32 | PDOC ---
[facility] [facility] PROGRESS NOTE Date of Service DOS: DATE: 12/03/20 TIME: 13:32 Chief Complaint Chief Complaint COVID-19 Respiratory Failure Shortness of breath Cough Weakness Recent Pneumonia History of Present Illness History of Present Illness 12/03: Mrs. Camp was seen and evaluated this morning in her room. We discussed her current disposition with her nurse and reviewed her chart. She is currently on 5L of Oxygen and is now completed on her Remdesivir treatment. The patient continue to remian on the COVID-19 Protocol (Vitamin C, Aspirin, Azithromycin, Dexamethasone, Doxycycline, Lovenox, Guaifenesin/Codeine, Mutivitamin, Piperacillin/Tazobactam, Remdesivir, Zinc). Vitals/I&O Vitals/I&O: Vital Signs Date Time Temp Pulse Resp B/P (MAP) Pulse Ox O2 Delivery O2 Flow Rate FiO2 12/03/20 11:00 97.9 74 20 138/81 (100) 95 Nasal Cannula 4.0 97.9 Physical Exam Physical Exam: Constitutional: Well developed, well nourished, no acute distress, non-toxic appearance. [] HENT: Normocephalic, atraumatic, bilateral external ears normal, oropharynx moist, no oral exudates, nose normal. [] Eyes: PERRLA, EOMI, conjunctiva normal, no discharge. [] Neck: Normal range of motion, no tenderness, supple, no stridor. [] Cardiovascular:Heart rate regular rhythm, no murmur [] Lungs & Thorax: Bilateral upper breath sounds clear lower diminished to auscultation [] Abdomen: Bowel sounds normal, soft, no tenderness, no masses, no pulsatile masses. [] Skin: Warm, dry, no erythema, no rash. [] Back: No tenderness, no CVA tenderness. [] Extremities: No tenderness, no cyanosis, no clubbing, ROM intact, no edema. [] Neurologic: Alert and oriented X 3, normal motor function, normal sensory function, no focal deficits noted. [] Psychologic: Affect normal, judgement normal, mood normal. Anxious [] General: Alert, Oriented X3, Cooperative Heart: Regular rate, No murmurs Lungs: Clear Abdomen: Normal bowel sounds Extremities: No clubbing, No edema Skin: No rashes Labs Labs: Laboratory Tests Test 9/4/21 08:30 Total Bilirubin 0.8 mg/dL (0.2-1.0) Direct Bilirubin 0.2 mg/dL (0.0-0.2) Aspartate Amino Transf (AST/SGOT) 20 U/L (15-37) Alanine Aminotransferase (ALT/SGPT) 72 U/L (14-59) Alkaline Phosphatase 49 U/L (46-116) Total Protein 6.0 g/dL (6.4-8.2) Albumin 2.5 g/dL (3.4-5.0) Assessment and Plan Assessmemt and Plan Problems Medical Problems: (1) Pneumonia due to COVID-19 virus Status: Acute Comment Review of Relevant I have reviewed the following items jey (where applicable) has been applied. Justifications for Admission Other Justification ABBEY SHERWOOD MD Dec 03, 2020 13:32
[2020-12-03] MEDS: REMDESIVIR 100mg in NORMAL SALINE 250ML X 4 DAYS IV SCH (14:50)
[2020-12-03 15:14] VITALS: BP 147/86
[2020-12-03 19:00] VITALS: BP 135/81
[2020-12-03 23:00] VITALS: BP 135/83
[2020-12-04] MEDS: PIPERACILLIN/TAZOBACTAM 3.375 GM in IV NORMAL SALINE 50ML 50 ML IV SCH ×3 (00:09→12:00)
[2020-12-04 03:00] VITALS: BP 142/91
[2020-12-04] MEDS: guaiFENesin/CODEINE 100mg/10mg 5 ML LIQUID PO PRN (03:26)
[2020-12-04 07:00] VITALS: BP 138/89
[2020-12-04 07:10] LABS: ALBUMIN 2.6 g/dL (3.4-5.0); DIRECT BILIRUBIN 0.2 mg/dL (0.0-0.2); TOTAL BILIRUBIN 0.7 mg/dL (0.2-1.0); TOTAL PROTEIN 5.9 g/dL (6.4-8.2)
[2020-12-04] MEDS ORDERED: PRED-220 PO (08:39)
[2020-12-04] MEDS ORDERED: DOXY100T PO (08:39)
--- NOTE | 2020-12-04 08:41 | PDOC3 ---
Discharge Summary Visit Information Date of Admission: Nov 29, 2020 Date of Discharge: Dec 04, 2020 Final Diagnosis COVID-19 Respiratory Failure Shortness of breath Cough Weakness Recent Pneumonia Problems Medical Problems: (1) Pneumonia due to COVID-19 virus Status: Acute Brief Hospital Course Allergies Allergies Coded Allergies Type Severity Reaction Last Updated Verified No Known Drug Allergies 08/11/16 No Vital Signs Vital Signs Date Time Temp Pulse Resp B/P (MAP) Pulse Ox O2 Delivery O2 Flow Rate FiO2 12/04/20 03:00 97.6 57 20 142/91 (108) 98 Nasal Cannula 4.0 97.6 Lab Results Laboratory Tests Test 12/02/20 10:15 12/03/20 08:30 12/04/20 05:30 Sodium Level 136 mmol/L (136-145) Potassium Level 3.5 mmol/L (3.5-5.1) Chloride Level 102 mmol/L (98-107) Carbon Dioxide Level 27 mmol/L (21-32) Anion Gap 7 (6-14) Blood Urea Nitrogen 21 mg/dL (7-20) Creatinine 0.7 mg/dL (0.6-1.0) Estimated GFR (Cockcroft-Gault) 86.6 Glucose Level 153 mg/dL (70-99) Calcium Level 8.2 mg/dL (8.5-10.1) Total Bilirubin 0.7 mg/dL (0.2-1.0) 0.8 mg/dL (0.2-1.0) 0.7 mg/dL (0.2-1.0) Direct Bilirubin 0.2 mg/dL (0.0-0.2) 0.2 mg/dL (0.0-0.2) 0.2 mg/dL (0.0-0.2) Aspartate Amino Transf (AST/SGOT) 22 U/L (15-37) 20 U/L (15-37) 12 U/L (15-37) Alanine Aminotransferase (ALT/SGPT) 77 U/L (14-59) 72 U/L (14-59) 62 U/L (14-59) Alkaline Phosphatase 46 U/L (46-116) 49 U/L (46-116) 45 U/L (46-116) Total Protein 5.8 g/dL (6.4-8.2) 6.0 g/dL (6.4-8.2) 5.9 g/dL (6.4-8.2) Albumin 2.4 g/dL (3.4-5.0) 2.5 g/dL (3.4-5.0) 2.6 g/dL (3.4-5.0) Laboratory Tests Test 12/04/20 05:30 Total Bilirubin 0.7 mg/dL (0.2-1.0) Direct Bilirubin 0.2 mg/dL (0.0-0.2) Aspartate Amino Transf (AST/SGOT) 12 U/L (15-37) Alanine Aminotransferase (ALT/SGPT) 62 U/L (14-59) Alkaline Phosphatase 45 U/L (46-116) Total Protein 5.9 g/dL (6.4-8.2) Albumin 2.6 g/dL (3.4-5.0) Brief Hospital Course Ms. Chow is a 55 old female, admit acute acute hpoxia, pna, covid needed oxygen supplement and we started her Remdesivir treatment. The patient continue to remian on the COVID-19 Protocol (Vitamin C, Aspirin, Azithromycin, Dexameth she felt well at DC< 6 min walk done before dc Discharge Information Condition at Discharge: Improved Follow Up: Weeks Disposition/Orders: D/C to Home Scheduled Doxycycline Hyclate (Doxycycline Hyclate) 100 Mg Tablet, 100 MG PO BID for pneumonia, #10 Prescribed by: ABBEY SHERWOOD on 12/04/20838 Prednisone (Prednisone ) 10 Mg Tablet, 10 MG PO UD for COVID pneumonia, #20 Ref 0 Take 4 tablets by mouth daily for 2 days, then take 3 tablets by mouth daily for 2 days, then take 2 tablets by mouth daily for 2 days, then take 1 tablets by mouth daily for 2 days, then stop. Prescribed by: ABBEY SHERWOOD on 12/04/20 0839 Scheduled PRN Albuterol Sulfate (Ventolin Hfa Inhaler) 18 Gm Hfa.aer.ad, 2 PUFF INH QID PRN for WHEEZING for 7 Days, #1 Ref 0 Prescribed by: JUDIE WEBB MD on 11/26/20 0402 Discontinued Medications Methylprednisolone (Medrol) 4 Mg Tab.ds.pk, 1 PKG PO UD, #1 Prescribed by: Purnima Davis APRN on 01/31/191938 Methylprednisolone (Medrol) 4 Mg Tab.ds.pk, 1 PKG PO UD for inflammation, #1 Prescribed by: JUDIE WEBB MD on 11/26/20 0402 Patient Instructions Patient Instructions pt seen face to shyanne time 37 minutes Justicifation of Admission Dx: Justifications for Admission: Justification of Admission Dx: Yes Sepsis: Hypoxemia ABBEY SHERWOOD MD Dec 04, 2020 08:41
[2020-12-04] MEDS: LACTOBACILLUS RHAMNOSUS GG 1 CAPSULE. PO SCH (08:52)
[2020-12-04] MEDS: ENOXAPARIN 40 MG/0.4 ML SYRINGE. SQ SCH (08:52)
[2020-12-04] MEDS: MULTIVITAMIN with MINERAL TABLET. PO SCH (08:52)
[2020-12-04] MEDS: ZINC SULFATE 220 MG CAPSULE. PO SCH (08:53)
[2020-12-04] MEDS: DEXAMETHASONE SOD PHOS 4 MG/ML VIAL IVP SCH (08:53)
[2020-12-04] MEDS: ASCORBIC ACID 1,000 MG TABLET PO SCH (08:53)
[2020-12-04] MEDS: ASPIRIN CHEWABLE 81 MG TABLET. PO SCH (08:53)
[2020-12-04] MEDS ORDERED: DOXYCYCLINE HYCLATE 100 MG TABLET PO SCH (09:00)
[2020-12-04 11:00] VITALS: BP 129/89
--- NOTE | 2020-12-04 14:18 | NUR ---
Discharge Note: MICHAEL ROSS [address] Discharge instructions and discharge home medications reviewed with Patient and a copy given. All questions have been answered and understanding verbalized. The following instructions and handouts were given: Patient given education regarding new medication and follow ups. Discontinued lines and drains: Iv removed per protocol. Patient discharged home, picked up by daughter.
[2020-12-04 18:12] LABS: CALCIUM 8.5 mg/dL (8.5-10.1); CREATININE 0.6 mg/dL (0.6-1.0); GFR 103.4; POTASSIUM 4.5 mmol/L (3.5-5.1)
== END 2020-12-04 13:35 | disposition home or self-care (01) | DRG 177 ==
LOC: ER 11:51 → ED HOLD 15:58 → 5 SOUTH 17:19 → OBSVTOIN 11-29 14:26
PROVIDERS: ADMIT Internal Medicine; ATTEND Internal Medicine
PROC: XW033E5 Introduction of Remdesivir Anti-infective into Peripheral Vein, Percutaneous Approach, New Technology Group 5 (ICD-10-PCS; principal; 2020-11-29)
DX: U07.1 COVID-19 (principal); J12.82 Pneumonia due to coronavirus disease 2019; J96.90 Respiratory failure, unspecified, unspecified whether with hypoxia or hypercapnia; Z82.49 Family history of ischemic heart disease and other diseases of the circulatory system
CPT/HCPCS: 36415; 36600; 71045; 80048; 80053; 80076; 81001; 82805; 83880; 84484; 85025; 85379; 93005; 94618; 96361; 96365; 96375; G0378; G0379; J0456; J1100; J1650; J2543; J2920; J2930; J3490; J7030; J7050; J7060; 99285-25